=== PATIENT | female | born 1965 | race Caucasian/White ===

== ENCOUNTER 2018-02-02 17:32 | Emergency (ER) | payer OTHER ==
--- NOTE | 2018-02-02 18:37 | ER Document Report ---
ED Medical Screen (RME) - General Chief Complaint: Abdominal Pain Stated Complaint: ABDOMINAL PAIN Mode of Arrival: Ambulatory Information source: Patient Notes: Patient presents to emergency department with complaints of abdominal pain. Reports she has had flulike symptoms fever nausea. She went to the urgent care and they noted that she had right lower quadrant abdominal pain so they sent her here for possible appendicitis. She reports she has had a decrease in appetite. Denies vomiting. Reports she is noted blood in the water after she has a bowel movement and when she wipes. She reports history of hemorrhoids. She reports her flu test was negative at the urgent care. Denies pain with void denies urinary frequency. Reports RLQ ttp. TRAVEL OUTSIDE OF THE [place] IN LAST 30 DAYS: No - Related Data Allergies/Adverse Reactions: Penicillins Allergy (Verified 02/02/18 17:32) Past Medical History Pulmonary Medical History: Reports: Hx COPD Renal/ Medical History: Denies: Hx Peritoneal Dialysis Past Surgical History: Reports: Hx Thyroid Surgery Physical Exam - Vital signs Vitals: Temp Pulse BP Pulse Ox 97.9 F 56 L 150/86 H 100 02/02/18 17:40 02/02/18 17:40 02/02/18 17:40 02/02/18 17:40 Course - Vital Signs Vital signs: Temp Pulse Resp BP Pulse Ox 97.9 F 56 L 150/86 H 100 02/02/18 17:40 02/02/18 17:40 02/02/18 17:40 02/02/18 17:40
[2018-02-02 19:07] LABS: APPEARANCE,URINE CLEAR; BILIRUBIN,URINE NEGATIVE (NEGATIVE); COLOR,URINE YELLOW; GLUCOSE, URINE NEGATIVE (NEGATIVE); KETONES,URINE NEGATIVE (NEGATIVE); LEUKOCYTE ESTERASE,URINE LARGE (NEGATIVE); NITRITE,URINE NEGATIVE (NEGATIVE); PROTEIN,URINE NEGATIVE (NEGATIVE); URINE SPECIFIC GRAVITY 1.011; UROBILINOGEN,URINE NEGATIVE mg/dL (<2.0)
[2018-02-02 19:30] LABS: ABSOLUTE BASOPHILS # (AUTO) 0.1 10^3/uL (0.0-0.2); ABSOLUTE EOSINOPHILS # (AUTO) 0.1 10^3/uL (0.0-0.6); ABSOLUTE LYMPHOCYTES (AUTO) 1.5 10^3/uL (0.5-4.7); ABSOLUTE MONOCYTES (AUTO) 0.4 10^3/uL (0.1-1.4); ABSOLUTE NEUT (AUTO) 4.4 10^3/uL (1.7-8.2); EOSINOPHILS % (AUTO) 1.1 % (0-6); HEMATOCRIT 43.8 % (36.0-47.0); HEMOGLOBIN 15.1 g/dL (12.0-15.5); LYMPHOCYTES % (AUTO) 23.7 % (13-45); MEAN CORPUSCULAR HEMOGLOBIN 31.3 pg (27.0-33.4); MEAN CORPUSCULAR HGB CONC 34.3 g/dL (32.0-36.0); MEAN CORPUSCULAR VOLUME 91 fl (80-97); MONOCYTES % (AUTO) 5.7 % (3-13); PLATELET COUNT 278 10^3/uL (150-450); RED CELL DISTRIBUTION WIDTH 12.9 % (11.5-14.0); SEGMENTED NEUTROPHILS % (AUTO) 68.5 % (42-78); TOTAL CELLS COUNTED % (AUTO) 100 %; WHITE BLOOD COUNT 6.4 10^3/uL (4.0-10.5)
[2018-02-02 19:50] LABS: ALANINE AMINOTRANSFERASE 48 U/L (9-52); ALBUMIN 4.9 g/dL (3.5-5.0); ALKALINE PHOSPHATASE 66 U/L (38-126); ANION GAP 15 (5-19); ASPARTATE AMINO TRANSFERASE 31 U/L (14-36); BILIRUBIN,DIRECT 0.3 mg/dL (0.0-0.4); BILIRUBIN,TOTAL 0.5 mg/dL (0.2-1.3); BLOOD UREA NITROGEN 7 mg/dL (7-20); CALCIUM 10.5 mg/dL (8.4-10.2); CARBON DIOXIDE 29 mmol/L (22-30); CHLORIDE 102 mmol/L (98-107); GLUCOSE 99 mg/dL (75-110); POTASSIUM 3.8 mmol/L (3.6-5.0); SODIUM 145.7 mmol/L (137-145); TOTAL PROTEIN 8.1 g/dL (6.3-8.2)
[2018-02-02] MEDS ORDERED: NORMAL SALINE 1000 ML 1,000 ML IV ONE (22:14)
[2018-02-02] MEDS ORDERED: ONDANSETRON HCL INJ/PF 4 MG/2 ML SDV IV ONE (22:14)
--- NOTE | 2018-02-02 23:12 | ER Document Report ---
ED General - General Chief Complaint: Abdominal Pain Stated Complaint: ABDOMINAL PAIN Time Seen by Provider: 02/02/18 22:00 Mode of Arrival: Ambulatory Notes: Patient is a 52-year-old female presents with complaint of abdominal pain. Abdominal pain is over the right lower quadrant. She states she has had some nausea. She has had 1 or 2 episodes diarrhea. No dysuria. No foul-smelling urine. She has had intermittent fevers at home. She says pain is been there for approximately 4 days. She went to urgent care today and was tested for flu and was negative. She was then sent here for workup for appendicitis. She has no other complaints this time. Only previous abdominal surgery is . TRAVEL OUTSIDE OF THE [place] IN LAST 30 DAYS: No - Related Data Allergies/Adverse Reactions: Penicillins Allergy (Verified 02/02/18 17:32) Past Medical History - General Information source: Patient - Social History Smoking Status: Former Smoker Frequency of alcohol use: None Drug Abuse: None Family History: Reviewed & Not Pertinent Patient has suicidal ideation: No Patient has homicidal ideation: No Pulmonary Medical History: Reports: Hx COPD Renal/ Medical History: Denies: Hx Peritoneal Dialysis Past Surgical History: Reports: Hx Thyroid Surgery Review of Systems - Review of Systems Notes: My Normal Review Basic REVIEW OF SYSTEMS: CONSTITUTIONAL : Fevers. EENT: Denies eye, ear, throat, or mouth pain or symptoms. Denies nasal or sinus congestion. CARDIOVASCULAR: Denies chest pain. RESPIRATORY: Denies cough, cold, or chest congestion. Denies shortness of breath, difficulty breathing, or wheezing. GASTROINTESTINAL: Right lower quadrant abdominal pain. Nausea. GENITOURINARY: Denies difficulty urinating, painful urination, burning, frequency, or blood in urine. MUSCULOSKELETAL: Denies neck or back pain or joint pain or swelling. SKIN: Denies rash or skin lesions. Transport NEUROLOGICAL: Denies altered mental status or loss of consciousness. Denies headache. No focal weakness. ALL OTHER SYSTEMS REVIEWED AND NEGATIVE. Physical Exam - Vital signs Vitals: Temp Pulse BP Pulse Ox 97.9 F 56 L 150/86 H 100 02/02/18 17:40 02/02/18 17:40 02/02/18 17:40 02/02/18 17:40 - Notes Notes: General Appearance: Well nourished, alert, cooperative, no acute distress, no obvious discomfort. Well-appearing. Vitals: reviewed, See vital signs table. Head: no swelling or tenderness to the head Eyes: PERRL, EOMI, Conjuctiva clear Mouth: No decreasd moisture Throat: No tonsillar inflammation, No airway obstruction, No lymphadenopathy Lungs: No wheezing, No rales, No rhonci, No accessory muscle use, good air exchange bilaterally. Heart: Normal rate, Regular rythm, No murmur, no rub Abdomen: Normal BS, soft, No rigidity, localized pain of the right lower quadrant palpation is moderate. Patient does have some pain to left upper quadrant that is mild tenderness. Remainder of abdomen is nontender. No rigidity. No peritoneal signs. Extremities: strength 5/5 in all extremities, good pulses in all extremities, no swelling or tenderness in the extremities, no edema. Skin: warm, dry, appropriate color, no rash Neuro: speech clear, oriented x 3, normal affect, responds appropriately to questions. Course - Vital Signs Vital signs: Temp Pulse Resp BP Pulse Ox 98.1 F 56 L 20 162/85 H 98 02/02/18 21:43 02/02/18 21:43 02/02/18 21:43 02/02/18 21:43 02/02/18 21:43 - Laboratory Result Diagrams: 02/02/18 19:07 02/02/18 19:07 Laboratory results interpreted by me: 02/02/18 02/02/18 18:40 19:07 Sodium 145.7 H Calcium 10.5 H Urine Blood SMALL H Ur Leukocyte Esterase LARGE H Discharge - Discharge Clinical Impression: UTI (urinary tract infection) Qualifiers: Urinary tract infection type: site unspecified Hematuria presence: without hematuria Qualified Code(s): N39.0 - Urinary tract infection, site not specified Abdominal pain Qualifiers: Abdominal location: unspecified location Qualified Code(s): R10.9 - Unspecified abdominal pain Condition: Good Disposition: HOME, SELF-CARE Additional Instructions: Your CT scan did not show evidence of appendicitis. Your lab work shows evidence of urinary tract infection. I will place on an antibiotic called Bactrim. Please have a low threshold to return to ER immediately if you have worsening pain, vomiting, recurrent fevers, or she feel that you are worsening any way. Please follow-up with your doctor in 2-3 days for reevaluation. Prescriptions: Sulfamethoxazole/Trimethoprim [Bactrim Ds Tablet] 1 each PO BID #14 tablet Forms: Return to Work
--- NOTE | 2018-02-02 23:46 | RADIOLOGY REPORT (SQ) ---
EXAM DESCRIPTION: CT ABD/PELVIS WITH IV ONLY CLINICAL HISTORY: 52 years Female, abdominal pain COMPARISON: None. TECHNIQUE: No contrast. Coronal and sagittal reformat. This exam was performed according to our departmental dose-optimization program, which includes automated exposure control, adjustment of the mA and/or kV according to patient size and/or use of iterative reconstruction technique. FINDINGS: No acute findings. No free fluid. Normal appendix. IUD appears adequate. Inferior thorax, liver, gallbladder, pancreas, spleen, adrenals, renal system, gastrointestinal tract, pelvic organs, lymphatics, vasculature, and musculoskeleton appear otherwise unremarkable. IMPRESSION: Normal contrast CT of the abdomen and pelvis. IUD.
[2018-02-03] MEDS ORDERED: SULFAMETHOXAZOLE/TRIMETHOPRIM 800-160 MG TABLET PO ONE (00:16)
[2018-02-03] MEDS ORDERED: ONDANSETRON ODT 4 MG TAB (6 TAB/ER DISP) PO PRN (00:21)
[2018-02-03 00:38] VITALS: BP 149/78
== END 2018-02-03 00:38 | disposition home or self-care (01) ==
LOC: ER 17:32
DX: N39.0 Urinary tract infection, site not specified (principal); R50.9 Fever, unspecified; R10.31 Right lower quadrant pain; R10.12 Left upper quadrant pain; R11.0 Nausea; J44.9 Chronic obstructive pulmonary disease, unspecified; Z88.0 Allergy status to penicillin; Z87.891 Personal history of nicotine dependence
CPT/HCPCS: 99284; 96361; 96374; 36415; 85025; 80053; 81001; 74177; J2405; J7030

== ENCOUNTER 2019-08-31 14:26 | Emergency (ER) | payer OTHER ==
[2019-08-31] MEDS ORDERED: ASPIRIN 81 MG TABLET, CHEWABLE PO ONE (14:39)
--- NOTE | 2019-08-31 14:39 | ER Document Report ---
ED Medical Screen (RME) - General Chief Complaint: Chest Pain Stated Complaint: COUGH,FEVER Time Seen by Provider: 08/31/19 14:34 Mode of Arrival: Ambulatory Information source: Patient Notes: 54-year-old female female presented to ED for complaint of chest pain since this morning. She states she woke up in a puddle of sweat and she had an old thermometer and she checked her temperature was 102.3. She states she is not taking any medication she has not gotten up she did not go to work she has not done anything for the symptoms since then and her temperature is afebrile at this time. Her vital signs are stable at this time. She states she does still have some chest pain. She states she did feel a cardiac stress test about 4 years ago but she does not know what they ended up saying was wrong with her at that time. She states she is chilled all the time since morning. She states she has not had a flu shot. She states she does not take medications for any chronic illnesses she does not have any past medical history she does not drink or use cigarettes or any drugs. She does vape. The only medical history she has is when she failed the cardiac stress test. I have greeted and performed a rapid initial assessment of this patient. A comprehensive ED assessment and evaluation of the patient, analysis of test results and completion of medical decision making process will be conducted by an additional ED providers. TRAVEL OUTSIDE OF THE [place] IN LAST 30 DAYS: No - Related Data Allergies/Adverse Reactions: Penicillins Allergy (Verified 08/31/19 14:32) Past Medical History Pulmonary Medical History: Reports: Hx COPD Renal/ Medical History: Denies: Hx Peritoneal Dialysis Past Surgical History: Reports: Hx Thyroid Surgery
[2019-08-31 15:27] LABS: APPEARANCE,URINE CLEAR; BILIRUBIN,URINE NEGATIVE (NEGATIVE); COLOR,URINE STRAW; GLUCOSE, URINE NEGATIVE (NEGATIVE); KETONES,URINE NEGATIVE (NEGATIVE); PROTEIN,URINE NEGATIVE (NEGATIVE); URINE SPECIFIC GRAVITY 1.004; UROBILINOGEN,URINE NEGATIVE mg/dL (<2.0)
[2019-08-31 15:37] LABS: A TYPE INFLUENZA AG NEGATIVE (NEGATIVE); B INFLUENZA AG NEGATIVE (NEGATIVE)
--- NOTE | 2019-08-31 15:46 | RADIOLOGY REPORT (SQ) ---
EXAM DESCRIPTION: CHEST 2 VIEWS COMPLETED DATE/TIME: 08/31/2019 3:28 pm REASON FOR STUDY: cehst pain COMPARISON: None. EXAM PARAMETERS: NUMBER OF VIEWS: two views TECHNIQUE: Digital Frontal and Lateral radiographic views of the chest acquired. RADIATION DOSE: NA LIMITATIONS: none FINDINGS: LUNGS AND PLEURA: No opacities, masses or pneumothorax. No pleural effusion. MEDIASTINUM AND HILAR STRUCTURES: No masses or contour abnormalities. HEART AND VASCULAR STRUCTURES: Heart normal size. No evidence for failure. BONES: Disc degenerative disease of the thoracic spine. HARDWARE: None in the chest. OTHER: No other significant finding. IMPRESSION: No acute abnormality of the lungs. No focal airspace opacity. TECHNICAL DOCUMENTATION: JOB ID: [id number]- All Rights Reserved Reading location - IP/workstation name: [email or web address]
[2019-08-31 15:57] LABS: ABSOLUTE LYMPHOCYTES (AUTO) 0.6 10^3/uL (0.5-4.7); ABSOLUTE MONOCYTES (AUTO) 0.2 10^3/uL (0.1-1.4); ABSOLUTE NEUT (AUTO) 5.5 10^3/uL (1.7-8.2); BASOPHILS % (AUTO) 0.7 % (0-2); EOSINOPHILS % (AUTO) 0.8 % (0-6); HEMATOCRIT 39.2 % (36.0-47.0); HEMOGLOBIN 13.8 g/dL (12.0-15.5); LYMPHOCYTES % (AUTO) 9.6 % (13-45); MEAN CORPUSCULAR HEMOGLOBIN 32.3 pg (27.0-33.4); MEAN CORPUSCULAR HGB CONC 35.4 g/dL (32.0-36.0); MEAN CORPUSCULAR VOLUME 92 fl (80-97); MONOCYTES % (AUTO) 3.8 % (3-13); PLATELET COUNT 238 10^3/uL (150-450); RED BLOOD COUNT 4.28 10^6/uL (3.72-5.28); RED CELL DISTRIBUTION WIDTH 12.5 % (11.5-14.0); SEGMENTED NEUTROPHILS % (AUTO) 85.1 % (42-78); TOTAL CELLS COUNTED % (AUTO) 100 %; WHITE BLOOD COUNT 6.4 10^3/uL (4.0-10.5)
[2019-08-31 16:10] LABS: ALBUMIN 4.3 g/dL (3.5-5.0); ALKALINE PHOSPHATASE 68 U/L (38-126); ANION GAP 8 (5-19); ASPARTATE AMINO TRANSFERASE 19 U/L (14-36); BILIRUBIN,DIRECT 0.1 mg/dL (0.0-0.4); BILIRUBIN,TOTAL 0.7 mg/dL (0.2-1.3); BLOOD UREA NITROGEN 7 mg/dL (7-20); CALCIUM 9.9 mg/dL (8.4-10.2); CARBON DIOXIDE 28 mmol/L (22-30); CHLORIDE 107 mmol/L (98-107); GLUCOSE 93 mg/dL (75-110); POTASSIUM 3.8 mmol/L (3.6-5.0); TOTAL PROTEIN 7.4 g/dL (6.3-8.2)
[2019-08-31] MEDS ORDERED: ACETAMINOPHEN 325 MG TABLET PO ONE (16:10)
--- NOTE | 2019-08-31 16:27 | ER Document Report ---
ED General - General Chief Complaint: Chest Pain Stated Complaint: COUGH,FEVER Time Seen by Provider: 08/31/19 14:34 Primary Care Provider: DEBBIE SNOW [Primary Care Provider] - Follow up as needed Mode of Arrival: Ambulatory Notes: 54-year-old anxious female presents to the emergency department with chief complaint of flulike symptoms that started about a week ago with chest pain this morning. Patient states that she had a normal thermometer and had a T-max of 102.3. Patient is otherwise perseverating about her work but does not have any specific complaints other than being "hot and cold hot and cold" and waking up in a pool of sweat. Patient denies headache, neck stiffness, sore throat, shortness of breath, nausea/vomiting/diarrhea, denies urinary symptoms. Of note she states that she has a ParaGard that is 2 years overdue from being removed. Patient has major life stressors right now with work and finances. TRAVEL OUTSIDE OF THE [place] IN LAST 30 DAYS: No - Related Data Allergies/Adverse Reactions: Penicillins Allergy (Verified 08/31/19 14:32) Past Medical History - General Information source: Patient - Social History Smoking Status: Never Smoker Chew tobacco use (# tins/day): No Frequency of alcohol use: None Drug Abuse: None Family History: Reviewed & Not Pertinent Patient has suicidal ideation: No Patient has homicidal ideation: No Pulmonary Medical History: Reports: Hx COPD Renal/ Medical History: Denies: Hx Peritoneal Dialysis Past Surgical History: Reports: Hx Thyroid Surgery Review of Systems - Review of Systems Constitutional: See HPI EENT: See HPI Cardiovascular: See HPI Respiratory: See HPI Gastrointestinal: See HPI Genitourinary: No symptoms reported Female Genitourinary: No symptoms reported Musculoskeletal: No symptoms reported Skin: No symptoms reported Hematologic/Lymphatic: No symptoms reported Neurological/Psychological: No symptoms reported Physical Exam - Vital signs Vitals: Temp Pulse Resp BP Pulse Ox 97.5 F 81 18 149/68 H 100 08/31/19 14:37 08/31/19 14:37 08/31/19 14:37 08/31/19 14:37 08/31/19 14:37 - Notes Notes: PHYSICAL EXAMINATION: Reviewed vital signs and charting by RN GENERAL: Alert, interacts well. No acute distress. HEAD: Normocephalic, atraumatic. EYES: Pupils equal and round. Extraocular movements intact. ENT: Oral mucosa moist, tongue midline. NECK: Full range of motion. Trachea midline. LUNGS: Clear to auscultation bilaterally, no wheezes, rales, or rhonchi. No respiratory distress. HEART: Regular rate and rhythm. No murmur ABDOMEN: soft, non-tender. No distention. Bowel sounds present EXTREMITIES: Moves all 4 extremities spontaneously. No edema, No cyanosis. PSYCH: Normal affect, depressed mood, anxious SKIN: Warm, dry, normal turgor. No rashes or lesions noted. Course - Re-evaluation Re-evalutation: 08/31/19 16:23 Generally well-appearing and nontoxic. Rapid flu negative. Chest x-ray normal. EKG showed a sinus rhythm with a rate of 73, a right bundle branch block, adams l axis. Awaiting troponin. 08/31/19 16:27 08/31/19 17:15 Troponin negative. Lab work all within normal limits. Patient most likely suffering from an upper respiratory viral infection. Patient is highly stressed so I am going to place a shelter case manager consult to possibly give her some assistance with services. She is stable for discharge. - Vital Signs Vital signs: Temp Pulse Resp BP Pulse Ox 97.5 F 81 10 L 157/87 H 98 08/31/19 14:37 08/31/19 14:37 08/31/19 16:01 08/31/19 16:01 08/31/19 16:01 - Laboratory Result Diagrams: 08/31/19 15:40 08/31/19 15:40 Laboratory results interpreted by me: 08/31/19 08/31/19 15:08 15:40 Lymph % (Auto) 9.6 L Seg Neutrophils % 85.1 H Urine Blood MODERATE H Leukocyte Esterase Rfl MODERATE H Discharge - Discharge Clinical Impression: Chest pain Qualifiers: Chest pain type: unspecified Qualified Code(s): R07.9 - Chest pain, unspecified Upper respiratory infection Qualifiers: URI type: unspecified URI Qualified Code(s): J06.9 - Acute upper respiratory infection, unspecified Condition: Good Disposition: HOME, SELF-CARE Instructions: Upper Respiratory Illness ([facility]) Additional Instructions: You have been seen and treated in the emergency department for an upper respiratory infection. These are typically caused by viruses and do not respond to antibiotics. They are typically highly contagious and because you are in the acute phase you should not return to work for the next 24-48 hours. Please also continue to take [id number] Tylenol and Motrin for your generalized body aches, fever. Please stay well-hydrated and get plenty of rest. Please follow- up with your primary care provider in the next 24 to 48 hours. Please return to the emergency room should you have any other concerning symptoms. Forms: Return to Work Referrals: [facility] [Primary Care Provider] - Follow up as needed
[2019-08-31 17:05] VITALS: BP 127/84
--- NOTE | 2019-08-31 17:17 | EKG REPORT ---
SEVERITY:- ABNORMAL ECG - SINUS RHYTHM PROBABLE LEFT ATRIAL ABNORMALITY RIGHT BUNDLE BRANCH BLOCK : Confirmed by: Fredy Morgan MD 31-Aug-2019 17:16:46
== END 2019-08-31 17:40 | disposition home or self-care (01) ==
LOC: ER 14:26
DX: J06.9 Acute upper respiratory infection, unspecified (principal); R07.9 Chest pain, unspecified; R50.9 Fever, unspecified; J44.9 Chronic obstructive pulmonary disease, unspecified; Z88.0 Allergy status to penicillin
CPT/HCPCS: 36415; 71046; 80053; 81001; 83690; 84484; 85025; 87086; 87804; 93005; 93010; 99284

== ENCOUNTER 2019-12-13 18:27 | Observation (INO) | payer OTHER ==
[2019-12-13] MEDS ORDERED: ASPIRIN 81 MG TABLET, CHEWABLE PO ONE (18:47)
--- NOTE | 2019-12-13 18:49 | ER Document Report ---
ED Medical Screen (RME) - General Chief Complaint: Chest Pain Stated Complaint: CHEST PAIN Time Seen by Provider: 12/13/19 18:42 Primary Care Provider: DEBBIE SNOW [Primary Care Provider] - Follow up as needed Notes: HPI: 54-year-old female presenting to the emergency department complaining of sharp squeezing chest pain in the lower midsternal region with radiation under the right breast that began around 7 AM has been constant throughout the day no nausea or vomiting, does complain of some shortness of breath. Pain does not radiate into the back neck arms or shoulders. Patient states she did recently see her primary care provider for a first visit 3 days ago. Patient states that they changed some of her medications. Patient has never seen a otolaryngology rep. Patient denies abdominal pain. I have greeted and performed a rapid initial assessment of this patient. A comprehensive ED assessment and evaluation of the patient, analysis of test results and completion of the medical decision making process will be conducted by additional ED providers PHYSICAL EXAMINATION: GENERAL: Well-appearing, well-nourished and in moderate acute distress. HEAD: Atraumatic, normocephalic. EYES: sclera anicteric, conjunctiva are normal. ENT: Moist mucous membranes. NECK: Normal range of motion LUNGS: Normal work of breathing, clear to auscultation HEART: 2+ radial pulses bilaterally, regular rate and rhythm ABD: limited by positioning for exam in triage., No significant tenderness elicited in triage on palpation EXTREMITIES: no pitting or edema. No cyanosis. NEUROLOGICAL: No focal neurological deficits. Moves all extremities spontaneously and on command. PSYCH: Anxious mood, normal affect. SKIN: Warm, Dry, normal turgor, no rashes or lesions noted. TRAVEL OUTSIDE OF THE [place] IN LAST 30 DAYS: No - Related Data Allergies/Adverse Reactions: Penicillins Allergy (Verified 12/13/19 18:41) Past Medical History - Social History Chew tobacco use (# tins/day): No Frequency of alcohol use: None Drug Abuse: None Pulmonary Medical History: Reports: Hx COPD Renal/ Medical History: Denies: Hx Peritoneal Dialysis Past Surgical History: Reports: Hx Thyroid Surgery Physical Exam - Vital signs Vitals: Temp Pulse Resp BP Pulse Ox 98 F 58 L 16 150/88 H 98 12/13/19 18:42 12/13/19 18:42 12/13/19 18:42 12/13/19 18:42 12/13/19 18:42 Course - Vital Signs Vital signs: Temp Pulse Resp BP Pulse Ox 98 F 58 L 16 150/88 H 98 12/13/19 18:42 12/13/19 18:42 12/13/19 18:42 12/13/19 18:42 12/13/19 18:42 Doctor's Discharge - Discharge Referrals: [facility] [Primary Care [facility]] - Follow up as needed
[2019-12-13 19:09] LABS: ABSOLUTE EOSINOPHILS # (AUTO) 0.1 10^3/uL (0.0-0.6); ABSOLUTE LYMPHOCYTES (AUTO) 1.2 10^3/uL (0.5-4.7); ABSOLUTE MONOCYTES (AUTO) 0.4 10^3/uL (0.1-1.4); ABSOLUTE NEUT (AUTO) 4.6 10^3/uL (1.7-8.2); BASOPHILS % (AUTO) 0.6 % (0-2); EOSINOPHILS % (AUTO) 1.5 % (0-6); HEMATOCRIT 40.1 % (36.0-47.0); HEMOGLOBIN 13.7 g/dL (12.0-15.5); LYMPHOCYTES % (AUTO) 18.4 % (13-45); MEAN CORPUSCULAR HGB CONC 34.2 g/dL (32.0-36.0); MEAN CORPUSCULAR VOLUME 94 fl (80-97); MONOCYTES % (AUTO) 6.9 % (3-13); PLATELET COUNT 267 10^3/uL (150-450); RED BLOOD COUNT 4.28 10^6/uL (3.72-5.28); RED CELL DISTRIBUTION WIDTH 12.9 % (11.5-14.0); SEGMENTED NEUTROPHILS % (AUTO) 72.6 % (42-78); TOTAL CELLS COUNTED % (AUTO) 100 %; WHITE BLOOD COUNT 6.3 10^3/uL (4.0-10.5)
--- NOTE | 2019-12-13 19:14 | RADIOLOGY REPORT (SQ) ---
EXAM DESCRIPTION: CHEST 2 VIEWS COMPLETED DATE/TIME: 12/13/2019 7:02 pm REASON FOR STUDY: chest pain COMPARISON: 08/31/2019 TECHNIQUE: Frontal and lateral radiographic views of the chest acquired. NUMBER OF VIEWS: Two view. LIMITATIONS: None. FINDINGS: LUNGS AND PLEURA: No pneumothorax. No consolidation or pleural effusion. MEDIASTINUM AND HILAR STRUCTURES: Stable. HEART AND VASCULAR STRUCTURES: Stable. BONES: No acute findings. HARDWARE: None in the chest. OTHER: No other significant finding. IMPRESSION: NO ACUTE FINDINGS. TECHNICAL DOCUMENTATION: JOB ID: [id number] [employer]- All Rights Reserved Reading location - IP/workstation name: [email or web address]
[2019-12-13 19:32] LABS: ALBUMIN 4.4 g/dL (3.5-5.0); ALKALINE PHOSPHATASE 52 U/L (38-126); ANION GAP 5 (5-19); ASPARTATE AMINO TRANSFERASE 22 U/L (14-36); BILIRUBIN,TOTAL 0.7 mg/dL (0.2-1.3); BLOOD UREA NITROGEN 12 mg/dL (7-20); CARBON DIOXIDE 32 mmol/L (22-30); CHLORIDE 103 mmol/L (98-107); POTASSIUM 3.9 mmol/L (3.6-5.0); TOTAL PROTEIN 7.4 g/dL (6.3-8.2)
[2019-12-13 19:35] LABS: GLUCOSE 61 mg/dL (75-110)
--- NOTE | 2019-12-13 19:56 | EKG REPORT ---
SEVERITY:- ABNORMAL ECG - SINUS RHYTHM RIGHT BUNDLE BRANCH BLOCK : Confirmed by: Fredy Morgan MD 13-Dec-2019 19:55:40
[2019-12-13] MEDS ORDERED: ONDANSETRON HCL INJ/PF 4 MG/2 ML SDV IV ONE (20:14)
[2019-12-13] MEDS ORDERED: FENTANYL CITRATE INJ/PF 100 MCG/2 ML AMPUL IV ONE ×2 (20:15→22:21)
--- NOTE | 2019-12-13 20:37 | ER Document Report ---
ED General - General Chief Complaint: Chest Pain Stated Complaint: CHEST PAIN Time Seen by Provider: 12/13/19 18:42 Primary Care Provider: DEBBIE SNOW [NO LOCAL MD] - Follow up as needed TRAVEL OUTSIDE OF THE [place] IN LAST 30 DAYS: No - HPI Notes: This is a 54-year-old female with no known prior history of cardiac disease who awakened around 7 AM 3 days ago with discomfort in the right subcostal area radiating to the sternum and up underneath the right breast described as sharp and "taking my breath away" worse with movement or taking a deep breath. Patient denies nausea vomiting. She says she has had some intermittent subjective fever without chills. She denies any known history of hepatobiliary disease. Patient was seen by primary care doctor and told that she was having "anxiety attacks" and was given an antidepressant and an antianxiety medication. She was also told she might need to "see a acid pump operator and get a GI series". Symptoms worse today and so she has presented to the emergency department. She she says the pain is very much intermittent not particularly associated with eating. Presently describes it as severe rating it 8/10. Patient says she no longer smokes but vapes regularly. Denies use of alcohol. No history of diabetes or hypertension. No history of hyperlipidemia. Family history is negative for cardiac disease. Denies any known injury. Denies personal or family history of thromboembolic disease. - Related Data Allergies/Adverse Reactions: Penicillins Allergy (Verified 12/13/19 18:41) Past Medical History - General Information source: Patient - Social History Smoking Status: Current Every Day Smoker Chew tobacco use (# tins/day): No Frequency of alcohol use: None Drug Abuse: None Family History: Reviewed & Not Pertinent Patient has suicidal ideation: No Patient has homicidal ideation: No Pulmonary Medical History: Reports: Hx COPD Renal/ Medical History: Denies: Hx Peritoneal Dialysis Past Surgical History: Reports: Hx Thyroid Surgery Review of Systems - Review of Systems Notes: Constitutional: As per HPI. HENT: Negative for sore throat. Eyes: Negative for visual changes. Cardiovascular: As per HPI. Respiratory: As per HPI. Gastrointestinal: As per HPI. Genitourinary: Negative for dysuria. Musculoskeletal: Negative for back pain. Skin: Negative for rash. Neurological: Negative for headaches, weakness or numbness. 10 point ROS negative except as marked above and in HPI. Physical Exam - Vital signs Vitals: Temp Pulse BP Pulse Ox 98.0 F 58 L 150/88 H 98 12/13/19 18:39 12/13/19 18:39 12/13/19 18:39 12/13/19 18:39 - Notes Notes: GENERAL: Female patient of approximately stated age appearing in acute distress holding her right upper quadrant abdominal and lower right chest area complaining of severe pain. SKIN: Good turgor no rashes. HEAD: Normocephalic atraumatic. EYES: PERRLA. EOMI. Conjunctivae and sclerae clear. EARS: CANALS AND TMS CLEAR. NOSE: CLEAR. MOUTH: Moist mucosa. Good dentition. No stridor or edema. No drooling. NECK: Supple. No masses or thyromegaly. No adenopathy. Carotids 2+ without bruits. No JVD. BACK: Symmetrical without tenderness. CHEST: Respirations unlabored. Breath sounds clear and symmetrical. HEART: Regular rhythm. No murmur gallop or rub. ABDOMEN: Moderate tenderness right upper quadrant. Soft without masses, organomegaly or rebound. Bowel sounds normally active. No bruits. GENITALIA: Deferred. EXTREMITIES: No edema. No calf tenderness. Cap refill less than 1.5 seconds. Dorsalis pedis and posterior tibial pulses 3+ and symmetrical. NEUROLOGICAL: GCS 15. Alert and oriented x3. Fluent speech. Cranial nerves II through XII intact. Sensorimotor and cerebellar normal. Normal tone. PSYCHIATRIC: Very anxious and tearful. Course - Re-evaluation Re-evalutation: 12/13/19 20:37 EKG shows a right bundle branch block but this is old and present on a previous tracing obtained here in August 2019. Her initial troponin is normal. Chemistry profile is unremarkable. White count is not elevated. Hemoglobin is normal. Urinalysis is pending. Lipase level is normal. Oxygenation is normal and the chest x-ray shows no free air under the diaphragm no pneumothorax and no focal infiltrate or effusion. 12/13/19 20:39 Differential diagnosis at this time would include cardiac ischemia, biliary colic, renal stone, preeruptive zoster and musculoskeletal pain. We will give the patient some IV analgesia and await results of a gallbladder ultrasound at this point. 12/14/19 03:09 Gallbladder ultrasound was negative. We note that this lady has 2 normal troponins here and no acute changes appreciated on EKG. She has small amount of blood noted in her urine. We got a noncontrast CT abdomen pelvis and she has no evidence of obstructing stone or aneurysm and no evidence of perforation. Which she does have is very large amount of retained fecal material in the colon. Her TSH is elevated in the low 20s and she is not taking thyroid replacement at this time. I think her symptoms are probably due to her distended colon. We have given her 1 round of enemas with no significant results. She is continuing to complain of discomfort and a epigastric area. Case has been discussed with the hospitalist, Dr. Lassiter, and he will admit for further management and evaluation. - Vital Signs Vital signs: Temp Pulse Resp BP Pulse Ox 97.7 F 54 L 18 130/78 H 100 12/14/19 00:25 12/13/19 19:35 12/13/19 21:29 12/13/19 19:35 12/13/19 21:29 - Laboratory Result Diagrams: 12/13/19 18:50 12/13/19 18:50 Laboratory results interpreted by me: 12/13/19 12/13/19 12/13/19 18:50 18:50 21:17 Carbon Dioxide 32 H Glucose 61 L TSH 19.60 H Urine Blood MODERATE H - Diagnostic Test Radiology reviewed: Reports reviewed - No active disease per radiologist - EKG Interpretation by Me Additional EKG results interpreted by me: 12/13/19 20:39 Twelve-lead EKG is reviewed contemporaneously by me 1835 hrs. This shows a pre- existing right bundle branch block and a n sinus bradycardia with a rate of 57. She has no acute ST changes. Discharge - Discharge Clinical Impression: Chest pain Qualifiers: Chest pain type: unspecified Qualified Code(s): R07.9 - Chest pain, unspecified Hypothyroidism Qualifiers: Hypothyroidism type: postablative Qualified Code(s): E89.0 - Postprocedural hypothyroidism Constipation Qualifiers: Constipation type: slow transit constipation Qualified Code(s): K59.01 - Slow transit constipation Condition: Good Disposition: ADMITTED INPATIENT Admitting Provider: Maikol (Hospitalist) Unit Admitted: Telemetry [facility]: [facility] [NO LOCAL MD] - Follow up as needed
[2019-12-13 21:34] LABS: APPEARANCE,URINE CLEAR; BILIRUBIN,URINE NEGATIVE (NEGATIVE); COLOR,URINE STRAW; GLUCOSE, URINE NEGATIVE (NEGATIVE); KETONES,URINE NEGATIVE (NEGATIVE); PROTEIN,URINE NEGATIVE (NEGATIVE); URINE SPECIFIC GRAVITY 1.009; UROBILINOGEN,URINE NEGATIVE mg/dL (<2.0)
--- NOTE | 2019-12-13 22:06 | RADIOLOGY REPORT (SQ) ---
Ultrasound right upper quadrant on 12/13/2019 at 9:18 PM CLINICAL INDICATION: Right upper quadrant pain COMPARISON: CT from 02/02/2018 FINDINGS: Multiple sonographic images were obtained throughout the right upper quadrant, both transverse and sagittal images are obtained. Visualized pancreas is unremarkable. Visualized liver is homogeneous without focal liver lesion or evidence of intrahepatic biliary ductal dilatation. There are no gallstones, gallbladder wall thickening or pericholecystic fluid. Visualized hepatic vasculature is patent and with a normal directional flow. Common duct measures 2 mm which is within normal limits mitigating against obstruction of the biliary tree. Right kidney shows no hydronephrosis. IMPRESSION: Unremarkable exam.
--- NOTE | 2019-12-13 23:05 | RADIOLOGY REPORT (SQ) ---
EXAM DESCRIPTION: CT ABDOMEN PELVIS WITHOUT IV CONTRAST COMPLETED DATE/TME: 12/13/2019 22:18 CLINICAL HISTORY: 54 years, Female, RUQ abd pain and hematuria COMPARISON: 02/03/2018 CT. Ultrasound today's date TECHNIQUE: 287 Images stored on PACS. All CT scanners at this facility use dose modulation, iterative reconstruction, and/or weight based dosing when appropriate to reduce radiation dose to as low as reasonably achievable (ALARA). [facility]: Dose Right [facility]: CareDose [facility]: Dose Right [facility]: Teradose 4D [facility]: [employer] LIMITATIONS: None. FINDINGS: The lung bases are unremarkable. Osseous structures are grossly intact. The visualized liver, spleen, adrenal glands, pancreas, kidneys are unremarkable. Negative for urinary tract calculus or hydronephrosis. The gallbladder is present. There is no evidence for bowel obstruction. Normal appendix. Abundant stool in the colon. No free air or free fluid. IUD in place. Urinary bladder is incompletely distended. IMPRESSION: Large amount of stool in the colon. Negative for urinary tract calculus or hydronephrosis TECHNICAL DOCUMENTATION: Quality ID # 436: Final reports with documentation of one or more dose reduction techniques (e.g., Automated exposure control, adjustment of the mA and/or kV according to patient size, use of iterative reconstruction technique) copyright 2011 [employer]- All Rights Reserved
[2019-12-14] MEDS ORDERED: LEVOTHYROXINE SODIUM 0.05 MG TABLET PO ONE (04:52)
[2019-12-14] MEDS ORDERED: PROMETHAZINE HCL INJ 25 MG/1 ML VIAL IV PRN (04:52)
[2019-12-14] MEDS ORDERED: MAGNESIUM HYDROXIDE SUSP 30 ML UDCUP PO PRN (04:52)
[2019-12-14] MEDS ORDERED: ACETAMINOPHEN 325 MG TABLET PO PRN (04:52)
--- NOTE | 2019-12-14 04:52 | PDOC H&P ---
History of Present Illness Admission Date/PCP: 12/14/19 03:26 SUNNY FORDE DO Patient complains of: epigastric pain History of Present Illness: SPENCER MORAN is a 54 year old female with diffuse complaints of abdominal pain mostly in the epigastrium and under the distal sternum. She has seen a new primary care provider and he has suggested that this could be a hiatal hernia or gastritis/esophagitis. He is currently scheduling an outpatient imaging study as a first step. In addition CT scan does show significant constipation although the patient reports moving her bowels regularly. She had radioactive iodine treatment for her hyperthyroidism and is now hypothyroid but she is not been taking her levothyroxine. Lastly she suffers from significant anxiety. The initial troponins are negative and I do not believe this has any bearing on her cardiac status. I believe her pain is related to constipation and likely esophagitis/gastritis. Work-up reveals a normal CBC. TSH is 19.6. Troponins are less than 0.012 and her sed rate is normal. She will be admitted to observation status. Monitor on telemetry. Continue laxative administration and proton pump inhibitors along with Carafate. Past Medical History Pulmonary Medical History: Reports: Chronic Obstructive Pulmonary Disease (COPD) Endocrine Medical History: Reports: Hyperthyroidism - Initially with radioactive iodine therapy leading to hypothyroidism, Hypothyroidism Psychiatric Medical History: Reports: General Anxiety Disorder Past Surgical History Past Surgical History: Reports: Section Social History Information Source: Patient Lives with: Spouse/Significant other Smoking Status: Former Smoker Electronic Cigarette use?: Yes - Patient reports no cigarettes but does vape Frequency of Alcohol Use: Rare Hx Recreational Drug Use: No Hx Prescription Drug Abuse: No - Advance Directive Resuscitation Status: Full Code Family History Family History: Reviewed & Not Pertinent, Other - Mother committed suicide Parental Family History Reviewed: Yes Children Family History Reviewed: Yes Sibling(s) Family History Reviewed.: Yes Medication/Allergy Home Medications: Buspirone HCl [Buspar 10 mg Tablet] 7.5 mg PO BID 12/14/19 Hydroxyzine Pamoate [Vistaril 25 mg Capsule] 25 mg PO Q8HP PRN 12/14/19 Levothyroxine Sodium [Synthroid 0.05 mg Tablet] 0.05 mg PO Q6AM 12/14/19 Zolpidem Tartrate [Ambien] 10 mg PO QHS 12/14/19 Allergies/Adverse Reactions: Penicillins Allergy (Verified 12/13/19 18:41) Review of Systems All systems: reviewed and no additional remarkable complaints except as stated Cardiovascular: PRESENT: chest pain Gastrointestinal: PRESENT: constipation Psychiatric: PRESENT: anxiety Physical Exam Vital Signs: Temp Pulse Resp BP Pulse Ox 97.7 F 54 L 18 130/78 H 100 12/14/19 00:25 12/13/19 19:35 12/13/19 21:29 12/13/19 19:35 12/13/19 21:29 Intake & Output 12/12/19 12/13/19 12/14/19 06:59 06:59 07:59 Weight 67.4 kg General appearance: PRESENT: mild distress - Mild to moderate distress, well- developed Head exam: PRESENT: atraumatic, normocephalic Eye exam: PRESENT: conjunctiva pink, EOMI. ABSENT: scleral icterus Ear exam: PRESENT: normal external ear exam. ABSENT: bleeding, drainage Mouth exam: PRESENT: moist, tongue midline Neck exam: ABSENT: carotid bruit, JVD, lymphadenopathy Respiratory exam: PRESENT: clear to auscultation goran, symmetrical, unlabored. ABSENT: accessory muscle use, prolonged expiratory phas, rales, rhonchi, tachypnea, wheezes Cardiovascular exam: PRESENT: RRR, +S1, +S2. ABSENT: diastolic murmur, systolic murmur GI/Abdominal exam: PRESENT: normal bowel sounds, soft. ABSENT: distended, guarding, tenderness Rectal exam: PRESENT: deferred Gentrourinary exam: ABSENT: indwelling catheter Extremities exam: ABSENT: joint swelling, pedal edema Musculoskeletal exam: PRESENT: ambulatory, full ROM, normal inspection. ABSENT: deformity Neurological exam: PRESENT: alert, awake, oriented to person, oriented to place, oriented to time, oriented to situation, CN II-XII grossly intact. ABSENT: motor sensory deficit Psychiatric exam: PRESENT: anxious. ABSENT: agitated, manic Focused psych exam: PRESENT: restlessness. ABSENT: delusional Skin exam: PRESENT: dry, normal color, warm. ABSENT: rash Results Laboratory Results: 12/13/19 18:50 12/13/19 18:50 12/13/19 12/13/19 12/13/19 18:50 18:50 18:50 WBC 6.3 RBC 4.28 Hgb 13.7 Hct 40.1 MCV 94 MCH 32.0 MCHC 34.2 RDW 12.9 Plt Count 267 Seg Neutrophils % 72.6 Sodium 140.1 Potassium 3.9 Chloride 103 Carbon Dioxide 32 H Anion Gap 5 BUN 12 Creatinine 0.75 Est GFR ( Amer) > 60 Glucose 61 L Calcium 10.0 Total Bilirubin 0.7 AST 22 Alkaline Phosphatase 52 Total Protein 7.4 Albumin 4.4 Lipase 216.4 TSH 19.60 H Urine Color Urine Appearance Urine pH Ur Specific Mallard Urine Protein Urine Glucose (UA) Urine Ketones Urine Blood Urine RBC (Auto) 12/13/19 21:17 WBC RBC Hgb Hct MCV MCH MCHC RDW Plt Count Seg Neutrophils % Sodium Potassium Chloride Carbon Dioxide Anion Gap BUN Creatinine Est GFR ( Amer) Glucose Calcium Total Bilirubin AST Alkaline Phosphatase Total Protein Albumin Lipase TSH Urine Color STRAW Urine Appearance CLEAR Urine pH 6.0 Ur Specific Mallard 1.009 Urine Protein NEGATIVE Urine Glucose (UA) NEGATIVE Urine Ketones NEGATIVE Urine Blood MODERATE H Urine RBC (Auto) 2 12/13/19 12/13/19 18:50 23:59 Troponin I < 0.012 < 0.012 Impressions: Chest X-Ray 12/13/19 18:42 IMPRESSION: NO ACUTE FINDINGS. Abdomen Ultrasound 12/13/19 20:12 IMPRESSION: Unremarkable exam. Abdomen/Pelvis CT 12/13/19 22:18 IMPRESSION: Large amount of stool in the colon. Negative for urinary tract calculus or hydronephrosis TECHNICAL DOCUMENTATION: Quality ID # 436: Final reports with documentation of one or more dose reduction techniques (e.g., Automated exposure control, adjustment of the mA and/or kV according to patient size, use of iterative reconstruction technique) copyright 2011 [employer]- All Rights Reserved Assessment and Plan - Diagnosis (1) Chest pain Qualifiers: Chest pain type: unspecified Qualified Code(s): R07.9 - Chest pain, unspecified Is this a current diagnosis for this admission?: Yes Plan: 12/14/2019 The first 2 troponins are negative. The EKG does show a right bundle branch block and it is unknown if this is new or not. Sublingual nitroglycerin was never given to see if the pain would resolve. She is on aspirin. Statin therapy would be the next adjunct. She will be monitored on telemetry and consider cardiology evaluation. (2) Epigastric abdominal pain Is this a current diagnosis for this admission?: Yes Plan: 12/14/2019 The pain in question, as noted above, is more likely GI related. She will be placed on proton pump inhibitors and Carafate. She should continue with Dr. Forde's plan of an upper GI study. If effective, I would continue the proton pump inhibitors as an outpatient. She does have significant anxiety and this certainly could be contributing to her discomfort. (3) Constipation Qualifiers: Constipation type: slow transit constipation Qualified Code(s): K59.01 - Slow transit constipation Is this a current diagnosis for this admission?: Yes Plan: 12/14/2019 Despite reports of having regular bowel movements the patient still has a significant load of feces in her colon. I will give oral Dulcolax and mag citrate which should be quite effective. If this is a chronic problem then she might consider changes in diet as well as compliance with her levothyroxine and possibly medication such as Linzess or Relistor. (4) Hypothyroidism Qualifiers: Hypothyroidism type: postablative Qualified Code(s): E89.0 - Postprocedural hypothyroidism Is this a current diagnosis for this admission?: Yes Plan: 12/14/2019 The patient has been restarted on levothyroxine 50 mcg by her new primary care provider Dr. Forde. She will need repeat blood work in 3 months. (5) Anxiety Is this a current diagnosis for this admission?: Yes Plan: 12/14/2019 Continue BuSpar. I have increased the dose slightly. Lorazepam is available as well. Ambien will also be available to help with sleep. - Time Time Spent with patient: 35 or more minutes Smoking Cessation Education: 3 to 10 minutes - She needs to stop vaping Medications reviewed and adjusted accordingly: Yes Anticipated discharge: Home Within: within 48 hours
[2019-12-14] MEDS ORDERED: MAGNESIUM CITRATE 296 ML BOTTLE PO ONE (04:59)
[2019-12-14] MEDS ORDERED: BISACODYL 5 MG TABEC PO ONE (04:59)
[2019-12-14] MEDS: ZOLPIDEM TARTRATE 5 MG TABLET PO PRN ×2 (05:55→22:27)
[2019-12-14] MEDS: PANTOPRAZOLE SODIUM 40 MG TABLET.DR PO SCH ×2 (05:55→16:41)
[2019-12-14] MEDS: NORMAL SALINE 1000 ML 1,000 ML IV PRN ×2 (05:56→14:29)
[2019-12-14] MEDS: HEPARIN SOD (PORCINE) 5,000 UNIT/ML 1 ML VIAL SUBCUT SCH ×3 (05:56→22:27)
[2019-12-14] MEDS: DICYCLOMINE HCL 20 MG TABLET PO PRN ×2 (05:57→14:01)
[2019-12-14] MEDS: SUCRALFATE 1 GM TABLET PO SCH ×4 (09:08→22:27)
[2019-12-14] MEDS: BUSPIRONE HCL 10 MG TABLET PO SCH ×2 (09:08→22:27)
--- NOTE | 2019-12-14 11:32 | Progress Note ---
Provider Note Provider Note: 54-year-old female who was admitted last night through the emergency room after midnight for abdominal pain and "chest pain". Patient is a poor historian but states that for the last 3 months she has been having chest pain off and on. She points however to the epigastric region and the sternum. Patient states th at on November 24 she went to the emergency room at [facility] and was seen in the ER but not admitted for "chest pain". She tells me that she saw her primary care doctor last week on either Sunday or Dr. Forde who started her back on her thyroid medicine. Can stop this medicine on her own 13 years ago because she did not like the way she felt. On this admission her TSH is elevated at 19. Troponins x2 are negative and I have ordered the third [address] scan of the abdomen last night showed the colon was full of "stool ". Ultrasound of the gallbladder was negative. CBC was normal We do not have gastroenterology and her primary care doc stated he was going to work this up as an outpatient. I have witnessed that she has had several bowel movement since admission with laxatives. Going to get a KUB to check her abdominal status. I think it would be good for her to see cardiology why she is here and they can determine if she needs further studies studies.
[2019-12-14 12:33] LABS: CREATINE KINASE MB 1.07 ng/mL (<4.55)
[2019-12-14 12:37] LABS: TROPONIN I < 0.012 ng/mL
--- NOTE | 2019-12-14 12:40 | RADIOLOGY REPORT (SQ) ---
EXAM DESCRIPTION: KUB/ABDOMEN (SINGLE VIEW) COMPLETED DATE/TIME: 12/14/2019 12:22 pm REASON FOR STUDY: Constipation COMPARISON: None. NUMBER OF VIEWS: One view. TECHNIQUE: Supine radiographic image of the abdomen acquired. LIMITATIONS: None. FINDINGS: BOWEL GAS PATTERN: NoneNormal bowel gas pattern. No dilated loops. CONSTIPATION: None CALCIFICATIONS: No suspicious calcifications. SOFT TISSUES: No gross mass or suggestion of organomegaly. HARDWARE: None in the abdomen. BONES: No acute fracture. No worrisome bone lesions. OTHER: No other significant finding. IMPRESSION: NO RADIOGRAPHIC EVIDENCE FOR ACUTE ABDOMINAL DISEASE. No constipation. TECHNICAL DOCUMENTATION: JOB ID: [id number] 2010 [employer]- All Rights Reserved Reading location - IP/workstation name: [email or web address]
[2019-12-14] MEDS ORDERED: LIDOCAINE 2% VISCOUS SOLN 15 ML UDCUP PO ONE (16:15)
[2019-12-14] MEDS ORDERED: MAG HYDROX/AL HYDROX/SIMETH SUSP 30 ML UDCUP PO ONE (16:15)
[2019-12-14] MEDS ORDERED: METOCLOPRAMIDE HCL ORAL SOLN 10 MG/10 ML UDCUP PO ONE (16:15)
[2019-12-14] MEDS ORDERED: METOCLOPRAMIDE HCL INJ/PF 10 MG/2 ML SDV ONE (16:32)
[2019-12-14] MEDS ORDERED: MAG HYDROX/AL HYDROX/SIMETH SUSP 30 ML UDCUP ONE (16:32)
[2019-12-14] MEDS ORDERED: LIDOCAINE 2% VISCOUS SOLN 15 ML UDCUP ONE (16:41)
--- NOTE | 2019-12-14 20:05 | PDOC CONSULTATION ---
Consultation-Blank Consultation: CARDIOLOGY CONSULTATION By Dr.Lakshmi Meléndez on 12/14/2019. Patient seen at 11 AM. 60 minutes spent as patient more than 50% of time spent in direct patient care. REASON FOR CONSULTATION: Patient with chest pain. CONSULT REQUESTING PROVIDER: Willie Peters. PAC, [place] [facility] hospitalist [facility] HISTORY OF PRESENT ILLNESS: Patient since the past 1 week has been having pains in the chest and epigastric area. She states there is constant pain which is like a sharp pain in the pressure-like sensation in the lower right rib cage and also in the xiphoid process and epigastrium. These areas are tender to touch and reproduces the patient's symptoms. It is not related to exertion. She also has nausea but has no vomiting. There is no fatty food intolerance. There is no history of hemoptysis hematemesis or melena or hematochezia. There is no prior history of peptic ulcer disease. There is no history of prior GERD or peptic ulcer disease. A week ago she went to the emergency room and [facility] and states had a negative work-up in the emergency room but did not have a stress test or an echo. She also states she has changed her primary care physician and she was told that she might have a hiatal hernia and imaging studies for this has been ordered as an outpatient. She also states that she was found to be hypothyroid and recently has been started on thyroid replacement medication. She does have a history of anxiety. There is no history of asthma but states she has COPD has not needed treatment for COPD. No cough wheezing or sputum production. There is no prior history of FL or an clear-cut anginal symptoms. There is no history of palpitations or dizziness or syncope there is no history of heart failure. There is no history of diabetes mellitus. There is no history of TIA or CVA. The patient is EKG shows right bundle branch block pattern, and a serial troponin and troponins are negative. The patient's TSH is elevated. And the patient is being placed on replacement Synthroid. She has a history of anxiety and has appeared to be depressed and her affect is flat. Past Medical History Pulmonary Medical History: Reports: Chronic Obstructive Pulmonary Disease (COPD) Endocrine Medical History: Reports: Hyperthyroidism - Initially with radioactive iodine therapy leading to hypothyroidism, Hypothyroidism Psychiatric Medical History: Reports: General Anxiety Disorder There is no history of FL, coronary artery disease, heart failure, cardiac arrhythmia, congestive heart failure, or diabetes mellitus. Past Surgical History Past Surgical History: Reports: Section Social History Information Source: Patient Lives with: Spouse/Significant other Smoking Status: Former Smoker Electronic Cigarette use?: Yes - Patient reports no cigarettes but does vape Frequency of Alcohol Use: Rare Hx Recreational Drug Use: No Hx Prescription Drug Abuse: No - Advance Directive Resuscitation Status: Full Code. is a surrogate healthcare decision maker. Family History Family History: Patient is a his mother had coronary artery disease at a young age.- Mother committed suicide Parental Family History Reviewed: Yes Children Family History Reviewed: Yes Sibling(s) Family History Reviewed.: Yes Medication/Allergy Home Medications: Buspirone HCl [Buspar 10 mg Tablet] 7.5 mg PO BID 12/14/19 Hydroxyzine Pamoate [Vistaril 25 mg Capsule] 25 mg PO Q8HP PRN 12/14/19 Levothyroxine Sodium [Synthroid 0.05 mg Tablet] 0.05 mg PO Q6AM 12/14/19 Zolpidem Tartrate [Ambien] 10 mg PO QHS 12/14/19 Allergies/Adverse Reactions: Penicillins Allergy (Verified 12/13/19 18:41). She states she is allergic to all cillins Review of Systems CONSTITUTIONAL: Denies any fever chills or Reiger's. Complains of generalized fatigue. EYES: No amblyopia diplopia. No amaurosis fugax. EARS: No history of hearing loss. No stiff tinnitus. MOUTH: No history of altered taste sensation. No ulcers in the mouth. THROAT: No history of odynophagia or dysphagia. No recurrent sore throats. SKIN: No history of pruritus. No history of allergic discoloration of the skin. No history of eczema. No history of skin cancer. Cardiovascular: PRESENT: chest pain. This is reproducible noncardiac chest pain. There is no PND orthopnea palpitations near syncope or syncope. There is no leg edema. There is no history of congestive heart failure. LUNGS: No history of asthma. She has a diagnosis of COPD, but has not needed treatment for this. No history of sleep apnea. No history of pulmonary embolism. No history of hemoptysis. No pleuritic chest pain. She has reproducible chest wall pain. Gastrointestinal: PRESENT: constipation. This constipation may be related to her hypothyroidism. There is no history of fatty food intolerance. No history of hepatitis. No history of jaundice. No history of GI bleed. 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 No history of headaches migraines or seizures. No gait imbalance. ENDOCRINE: Does have constipation. No history of polydipsia polyuria. History of cold intolerance present. Patient is hypothyroid. No history of diabetes mellitus. Past metabolic: There is no obesity. No history of hyperlipidemia or gout. RENAL: No history of chronic kidney disease. No symptoms of UTI. No hematuria pyuria or dysuria. VASCULAR: No history of DVT. No history of calf or buttock claudication. HEMATOLOGICAL: No history of bleeding diathesis no history of clotting disorders. PSYCHIATRIC: There is no suicidal or homicidal ideation. The patient does not appear to be anxious or agitated. She appears to be slightly withdrawn and her affect is flat. PHYSICAL EXAMINATION: The patient is well-built and well-nourished. At present in no acute distress. Selected Entries 12/14/19 09:07 Temperature 98.0 F Temperature Oral Source Pulse Rate 60 Respiratory 18 Rate Blood Pressure 149/80 H Blood Pressure 103 Mean BP Location Left Arm BP Position Supine O2 Sat by Pulse 100 Oximetry Oxygen Delivery Room Air Method HEAD: Is atraumatic normocephalic. EYES: Pupils are equal round regular reactive to light and accommodation. There is no conjunctival pallor. There is no scleral icterus. EARS: Tympanic membranes are intact. External auditory canals are clear. NOSE: There is no deviated nasal septum. There is no inflammation nasal mucous membrane. MOUTH: Mucous membranes of the mouth and tongue are moist. There is no ulcers. THROAT: There is no redness of the oropharynx. There is no exudates. SKIN: There is no skin rashes. There is no petechia or ecchymosis. There is no skin lesions. NECK: Supple. There is no JVD carotids are equal there is no bruits. There is no lymphadenopathy. There is no goiter. There is no accessory muscle respiration use. Trachea central. LUNGS: There is chest wall tenderness by pressing on the lower right rib cage and there is lower end of the sternum and especially the xiphoid process. This reproduces the patient's clinical symptoms of chest pain. There is slightly diminished air entry throughout and mildly prolonged expiratory phase. There is no rhonchi rales or wheezing. On percussion there is mild hyperresonance. HEART: S1-S2 is heard. There is no S3 gallop. There is no S4 gallop. There is systolic murmur left sternal border and the apex there is no rub. ABDOMEN: Soft. There is mild discomfort on palpating the epigastrium. There is no hepatosplenomegaly. Bowel sounds are well heard. There is no tender areas masses. EXTREMITIES:: Femorals are well felt there is no femoral bruits. Leg pulses well felt. There is no pedal edema. There is no DVT or cellulitis. There is no calf tenderness. SLAT BASKET TOP MAKER: The patient is conscious awake alert oriented x3 with no focal deficits. PSYCHIATRIC: The patient does appear to be slightly depressed and affect is flat and the patient is withdrawn but in spite of this his judgment and insight are intact. EKG: Shows sinus rhythm. Right bundle branch block pattern. Labs- Entire Visit 12/13/19 12/13/19 12/13/19 18:50 18:50 18:50 WBC 6.3 RBC 4.28 Hgb 13.7 Hct 40.1 MCV 94 MCH 32.0 MCHC 34.2 RDW 12.9 Plt Count 267 Lymph % (Auto) 18.4 Mcclain % (Auto) 6.9 Eos % (Auto) 1.5 Baso % (Auto) 0.6 Absolute Neuts (auto) 4.6 Absolute Lymphs (auto) 1.2 Absolute Monos (auto) 0.4 Absolute Eos (auto) 0.1 Absolute Basos (auto) 0.0 Seg Neutrophils % 72.6 ESR Sodium 140.1 Potassium 3.9 Chloride 103 Carbon Dioxide 32 H Anion Gap 5 BUN 12 Creatinine 0.75 Est GFR ( Amer) > 60 Est GFR (MDRD) Non-Af > 60 Glucose 61 L POC Glucose Calcium 10.0 Total Bilirubin 0.7 Direct Bilirubin 0.0 Neonat Total Bilirubin Not Reportable Neonat Direct Bilirubin Not Reportable Neonat Indirect Bili Not Reportable AST 22 ALT 16 Alkaline Phosphatase 52 CK-MB (CK-2) Troponin I < 0.012 Total Protein 7.4 Albumin 4.4 Lipase 216.4 TSH Urine Color Urine Appearance Urine pH Ur Specific Winnett Urine Protein Urine Glucose (UA) Urine Ketones Urine Blood Urine Nitrite (Reflex) Urine Bilirubin Urine Urobilinogen Leukocyte Esterase Rfl Urine RBC (Auto) Urine WBC (Reflex) Squamous Epi Cells Auto Urine Mucus (Auto) Urine Ascorbic Acid 12/13/19 12/13/19 12/13/19 18:50 20:35 21:17 WBC RBC Hgb Hct MCV MCH MCHC RDW Plt Count Lymph % (Auto) Mcclain % (Auto) Eos % (Auto) Baso % (Auto) Absolute Neuts (auto) Absolute Lymphs (auto) Absolute Monos (auto) Absolute Eos (auto) Absolute Basos (auto) Seg Neutrophils % ESR Sodium Potassium Chloride Carbon Dioxide Anion Gap BUN Creatinine Est GFR ( Amer) Est GFR (MDRD) Non-Af Glucose POC Glucose 97 Calcium Total Bilirubin Direct Bilirubin Neonat Total Bilirubin Neonat Direct Bilirubin Neonat Indirect Bili AST ALT Alkaline Phosphatase CK-MB (CK-2) Troponin I Total Protein Albumin Lipase TSH 19.60 H Urine Color STRAW Urine Appearance CLEAR Urine pH 6.0 Ur Specific Winnett 1.009 Urine Protein NEGATIVE Urine Glucose (UA) NEGATIVE Urine Ketones NEGATIVE Urine Blood MODERATE H Urine Nitrite (Reflex) NEGATIVE Urine Bilirubin NEGATIVE Urine Urobilinogen NEGATIVE Leukocyte Esterase Rfl NEGATIVE Urine RBC (Auto) 2 Urine WBC (Reflex) 1 Squamous Epi Cells Auto 3 Urine Mucus (Auto) RARE Urine Ascorbic Acid NEGATIVE 12/13/19 12/14/19 12/14/19 23:59 06:46 11:56 WBC RBC Hgb Hct MCV MCH MCHC RDW Plt Count Lymph % (Auto) Mcclain % (Auto) Eos % (Auto) Baso % (Auto) Absolute Neuts (auto) Absolute Lymphs (auto) Absolute Monos (auto) Absolute Eos (auto) Absolute Basos (auto) Seg Neutrophils % ESR Sodium Potassium Chloride Carbon Dioxide Anion Gap BUN Creatinine Est GFR ( Amer) Est GFR (MDRD) Non-Af Glucose POC Glucose 87 Calcium Total Bilirubin Direct Bilirubin Neonat Total Bilirubin Neonat Direct Bilirubin Neonat Indirect Bili AST ALT Alkaline Phosphatase CK-MB (CK-2) 1.07 Troponin I < 0.012 < 0.012 Total Protein Albumin Lipase TSH Urine Color Urine Appearance Urine pH Ur Specific Winnett Urine Protein Urine Glucose (UA) Urine Ketones Urine Blood Urine Nitrite (Reflex) Urine Bilirubin Urine Urobilinogen Leukocyte Esterase Rfl Urine RBC (Auto) Urine WBC (Reflex) Squamous Epi Cells Auto Urine Mucus (Auto) Urine Ascorbic Acid 12/14/19 11:56 WBC RBC Hgb Hct MCV MCH MCHC RDW Plt Count Lymph % (Auto) Mcclain % (Auto) Eos % (Auto) Baso % (Auto) Absolute Neuts (auto) Absolute Lymphs (auto) Absolute Monos (auto) Absolute Eos (auto) Absolute Basos (auto) Seg Neutrophils % ESR 8 Sodium Potassium Chloride Carbon Dioxide Anion Gap BUN Creatinine Est GFR ( Amer) Est GFR (MDRD) Non-Af Glucose POC Glucose Calcium Total Bilirubin Direct Bilirubin Neonat Total Bilirubin Neonat Direct Bilirubin Neonat Indirect Bili AST ALT Alkaline Phosphatase CK-MB (CK-2) Troponin I Total Protein Albumin Lipase TSH Urine Color Urine Appearance Urine pH Ur Specific Winnett Urine Protein Urine Glucose (UA) Urine Ketones Urine Blood Urine Nitrite (Reflex) Urine Bilirubin Urine Urobilinogen Leukocyte Esterase Rfl Urine RBC (Auto) Urine WBC (Reflex) Squamous Epi Cells Auto Urine Mucus (Auto) Urine Ascorbic Acid Chest X-Ray 12/13/19 18:42 IMPRESSION: NO ACUTE FINDINGS. Abdomen Ultrasound 12/13/19 20:12 IMPRESSION: Unremarkable exam. Abdomen/Pelvis CT 12/13/19 22:18 IMPRESSION: Large amount of stool in the colon. Negative for urinary tract calculus or hydronephrosis KUB X-Ray 12/14/19 00:00 IMPRESSION: NO RADIOGRAPHIC EVIDENCE FOR ACUTE ABDOMINAL DISEASE. No constipation. IMPRESSION/RECOMMENDATION: 1. Noncardiac chest wall pain: So far cardiac enzymes are negative. 2. Hypothyroidism: Patient is being replaced with Synthroid. 3. Right bundle branch block pattern by EKG. 4. Systolic murmur:? Mitral regurgitation? Severity. 5. History of anxiety continue anti-anxiolytic agents. 6. COPD by history: Seems to be very mild and not on or requiring any treatment for this 7. Coronary artery disease risk factors are 1 patient's age,? Lipid status, family history of CAD, and patient is EKG showing right bundle branch block pattern. Recommendations current medications reviewed. Medical regimen and management plan discussed with the attending provider. We will schedule the patient for IV Lexiscan Cardiolite stress test in the a.m. since the patient needs to be started on Synthroid and maybe the dose needs to be increased. Hence we will make sure that the patient does not have any significant underlying coronary artery disease. We will also check an echo to assess the patient is chest pain and murmur. Medical decision making is of moderate to high complexity. 60 minutes spent as patient more than 50% of time spent in direct patient care. Will follow.
[2019-12-14] MEDS: LORAZEPAM INJ 2 MG/1 ML VIAL IV PRN (20:27)
[2019-12-15] MEDS: NORMAL SALINE 1000 ML 1,000 ML IV PRN ×3 (01:27→22:08)
[2019-12-15 05:53] LABS: ALBUMIN 3.3 g/dL (3.5-5.0); ALKALINE PHOSPHATASE 54 U/L (38-126); ASPARTATE AMINO TRANSFERASE 22 U/L (14-36); BILIRUBIN,DIRECT 0.5 mg/dL (0.0-0.4); BILIRUBIN,TOTAL 0.7 mg/dL (0.2-1.3); TOTAL PROTEIN 6.1 g/dL (6.3-8.2); TRIGLYCERIDES 130 mg/dL (<150)
[2019-12-15 06:04] LABS: DIRECT LDL 69 mg/dL (<100)
[2019-12-15] MEDS: PANTOPRAZOLE SODIUM 40 MG TABLET.DR PO SCH ×2 (06:19→16:06)
[2019-12-15] MEDS: HEPARIN SOD (PORCINE) 5,000 UNIT/ML 1 ML VIAL SUBCUT SCH ×3 (06:23→22:09)
[2019-12-15] MEDS: BUSPIRONE HCL 10 MG TABLET PO SCH ×2 (10:44→22:09)
[2019-12-15] MEDS: LORAZEPAM INJ 2 MG/1 ML VIAL IV PRN ×2 (10:44→18:17)
[2019-12-15] MEDS: SUCRALFATE 1 GM TABLET PO SCH ×4 (10:44→22:09)
[2019-12-15] MEDS ORDERED: LEVOTHYROXINE SODIUM 0.05 MG TABLET PO ONE (12:02)
[2019-12-15] MEDS: BUTALB/ACETAMINOPHEN/CAFFEINE 1 TAB EACH PO PRN ×2 (12:41→20:46)
--- NOTE | 2019-12-15 13:46 | RADIOLOGY REPORT (SQ) ---
EXAM DESCRIPTION: UGI W/ DOUBLE CONTRAST COMPLETED DATE/TIME: 12/15/2019 11:26 am REASON FOR STUDY: GERD, epigastric pain COMPARISON: None. TECHNIQUE: Under fluoroscopic guidance, patient ingested effervescent granules followed by thick and thin barium. Fluoroscopic spot images and routine radiographic images acquired and stored on PACS. 12 MM BARIUM TABLET GIVEN: Yes. No significant delay in passage. LIMITATIONS: None. FLUOROSCOPY TIME: FLUORO TIME: 2.1 MINUTES OF FLUOROSCOPY WAS USED. 20 images saved to PACS. FINDINGS: NEUROMUSCULAR COORDINATION OF SWALLOW: Normal. No aspiration. ESOPHAGEAL MOTILITY: Normal peristalsis. No esophageal spasm. ESOPHAGEAL MUCOSA: Normal mucosa without masses or ulceration. GASTRO-ESOPHAGEAL JUNCTION: No hiatal hernia or reflux. 12 mm barium tablet passed through the GE ju nction without delay. STOMACH: Normal without masses or ulcerations. GASTRIC OUTLET: No delay in emptying. Normal pylorus. DUODENAL BULB: Normal distention. No spasm or ulceration. DUODENUM: Mucosa normal. No extrinsic masses or malrotation. PROXIMAL SMALL BOWEL: Mucosa normal. No extrinsic masses or malrotation. NON-GI TRACT STRUCTURES: No significant finding. OTHER: No other significant finding. IMPRESSION: NORMAL DOUBLE CONTRAST BARIUM SWALLOW / UPPER GI SERIES. COMMENT: Quality ID [id number]: Final reports for procedures using fluoroscopy that document radiation exp osure indices, or exposure time and number of fluorographic images (if radiation exposure indices are not available) TECHNICAL DOCUMENTATION: JOB ID: [id number] 2010 [employer]- All Rights Reserved Reading location - IP/workstation name: [email or web address] [id number]
--- NOTE | 2019-12-15 16:13 | PDOC PROGRESS REPORT ---
Subjective Progress Note for:: 12/15/19 Reason For Visit: ABDOMINAL PAIN,CONSTIPATION,HYPOTHYROIDISM, 12/15/2019 Patient admitted through the emergency room for currently epigastric pain, abdominal pain, chest wall pain. Physical Exam Vital Signs: Temp Pulse Resp BP Pulse Ox 97.7 F 62 16 176/100 H 100 12/15/19 11:48 12/15/19 11:48 12/15/19 11:48 12/15/19 11:48 12/15/19 11:48 Intake & Output 12/14/19 12/15/19 12/16/19 06:59 06:59 06:59 Intake Total 3285 1000 Output Total Balance 3285 1000 Weight 61.9 kg General appearance: PRESENT: no acute distress, other - Patient is complaining of epigastric pain asking for pain medicine Respiratory exam: PRESENT: clear to auscultation goran. ABSENT: rales, rhonchi, wheezes Cardiovascular exam: PRESENT: RRR. ABSENT: diastolic murmur, rubs, systolic murmur GI/Abdominal exam: PRESENT: tenderness - To the sternum Neurological exam: PRESENT: alert, awake, oriented to person, oriented to place, oriented to time, oriented to situation, CN II-XII grossly intact. ABSENT: motor sensory deficit Psychiatric exam: PRESENT: unusual affect - Patient is somewhat difficult to evaluate because she is so demanding about her complaints. Results Laboratory Results: 12/13/19 18:50 12/13/19 18:50 12/15/19 04:55 Total Bilirubin 0.7 AST 22 Alkaline Phosphatase 54 Total Protein 6.1 L Albumin 3.3 L Triglycerides 130 Cholesterol 145.10 LDL Cholesterol Direct 69 VLDL Cholesterol 26.0 HDL Cholesterol 65 12/13/19 12/13/19 12/14/19 18:50 23:59 11:56 CK-MB (CK-2) 1.07 Troponin I < 0.012 < 0.012 < 0.012 Impressions: Chest X-Ray 12/13/19 18:42 IMPRESSION: NO ACUTE FINDINGS. Abdomen Ultrasound 12/13/19 20:12 IMPRESSION: Unremarkable exam. Abdomen/Pelvis CT 12/13/19 22:18 IMPRESSION: Large amount of stool in the colon. Negative for urinary tract calculus or hydronephrosis TECHNICAL DOCUMENTATION: Quality ID # [id number]: Final reports with documentation of one or more dose reduction techniques (e.g., Automated exposure control, adjustment of the mA and/or kV according to patient size, use of iterative reconstruction technique) copyright 2011 [employer]- All Rights Reserved KUB X-Ray 12/14/19 00:00 IMPRESSION: NO RADIOGRAPHIC EVIDENCE FOR ACUTE ABDOMINAL DISEASE. No constipation. Upper GI/Barium Swallow X-Ray 12/15/19 00:00 IMPRESSION: NORMAL DOUBLE CONTRAST BARIUM SWALLOW / UPPER GI SERIES. Assessment and Plan - Diagnosis (1) Chest wall pain Is this a current diagnosis for this admission?: Yes (2) Anxiety Is this a current diagnosis for this admission?: Yes (3) Chest pain Qualifiers: Chest pain type: unspecified Qualified Code(s): R07.9 - Chest pain, unspecified Is this a current diagnosis for this admission?: Yes (4) Constipation Qualifiers: Constipation type: slow transit constipation Qualified Code(s): K59.01 - Slow transit constipation Is this a current diagnosis for this admission?: Yes (5) Epigastric abdominal pain Is this a current diagnosis for this admission?: Yes (6) Hypothyroidism Qualifiers: Hypothyroidism type: postablative Qualified Code(s): E89.0 - Postprocedural hypothyroidism Is this a current diagnosis for this admission?: Yes - Plan Summary Summary: Patient tells me that 13 years ago she stopped taking her Synthroid because she did not like the way it made her feel. Just last week her primary care provider who she saw for the first time started her back on Synthroid 0.050 mg. Her TSH on this admission was 19. Other pertinent findings were a CT scan of the abdomen and pelvis which showed a large amount of stool in the colon. Since then patient has continued to complain of epigastric pain and according to the retail business analyst when he examined her her pain was very reproducible over the sternum. Patient had several bowel movements as a result of medications and follow-up KUB showed no obstructions, no significant stool. Patient had a upper GI and barium swallow today which was completely normal. Echo from today is pending She is scheduled to have a stress test tomorrow morning. Patient was asking for pain medicine and I ordered her plain Fioricet. If the stress test is normal tomorrow and her echo shows no pathology then she could be discharged to follow-up with her primary care provider concerning her hypothyroidism and chest wall pain as well as epigastric pain. I do feel that patient's anxiety is a significant component to her complaints - Time Time Spent with patient: 35 or more minutes
--- NOTE | 2019-12-15 17:01 | XCELERA REPORT ---
[address] [address] Transthoracic Echocardiogram Report Name: SPENCER MORAN Age: 54 yrs Gender: Female : 1965 Patient Status: Inpatient Patient Location: [address] [place] [address] Study Date: 12/15/2019 07:29 AM Height: 64 in Weight: 136 lb BSA: 1.7 m2 Procedure: A two-dimensional transthoracic echocardiogram with color flow and Doppler was performed. Study Quality: Fair. Reason For Study: Chest Pain /Murmur ? R94.31 History: Chest Pain /Murmur ? R94.31. Ordering Physician: NAN ROY Performed By: Tarsha Martinez Interpretation Summary The left ventricle is normal in size. There is normal left ventricular wall thickness. LV EF is 70% Left ventricular systolic function is normal. Doppler measurements suggest normal left ventricular diastolic function The left ventricular wall motion is normal. There is no thrombus. No ASD , VSD or PFO seen. The right ventricle is normal in size and function. The right atrium is normal. The left atrial size is normal. There is no evidence of mitral valve prolapse. There is no vegetation seen on the mitral valve. There is no mitral valve stenosis. There is no mitral regurgitation noted. There is no aortic valvular vegetation. There is no aortic valve stenosis There is no LVOT obstruction. No aortic regurgitation is present. There is no tricuspid stenosis. There is a trace to mild amount of tricuspid regurgitation There is mild pulmonary hypertension by echo RVSP is 30 to 35 mm of HG with RA mean of 5 to 10. There is no pulmonic valvular stenosis. There is a trace amount of pulmonic regurgitation The aortic root is normal size. The inferior vena cava appeared normal and decreased > 50% with respiration (RAP 5-10 mmHg) There is no pericardial effusion. MMode/2D Measurements & Calculations RVDd: 1.9 cm LVIDd: 4.6 cm FS: 39.9 % Ao root diam: 2.7 cm IVSd: 0.92 cm LVIDs: 2.8 cm EDV(Teich): 96.4 ml Ao root area: 5.7 cm2 LVPWd: 0.89 cm ESV(Teich): 28.3 ml EF(Teich): 70.6 % Doppler Measurements & Calculations MV E max gregorio: MV dec slope: Ao V2 max: LV V1 max P.3 cm/sec 588.0 cm/sec2 129.4 cm/sec 5.4 mmHg MV A max gregorio: MV dec time: 0.18 secAo max PG: LV V1 max: 80.9 cm/sec 6.7 mmHg 116.3 cm/sec MV E/A: 1.3 PI end-d gregorio: TR max gregorio: 86.9 cm/sec 248.9 cm/sec TR max P.8 mmHg Left Ventricle The left ventricle is normal in size. There is normal left ventricular wall thickness. LV EF is 70%. Left ventricular systolic function is normal. Doppler measurements suggest normal left ventricular diastolic function. The left ventricular wall motion is normal. There is no thrombus. No ASD , VSD or PFO seen. Right Ventricle The right ventricle is normal in size and function. Atria The right atrium is normal. The left atrial size is normal. Mitral Valve There is no evidence of mitral valve prolapse. There is no vegetation seen on the mitral valve. There is no mitral valve stenosis. There is no mitral regurgitation noted. Aortic Valve There is no aortic valvular vegetation. There is no aortic valve stenosis. There is no LVOT obstruction. No aortic regurgitation is present. Tricuspid Valve There is no tricuspid stenosis. There is a trace to mild amount of tricuspid regurgitation. There is mild pulmonary hypertension by echo. RVSP is 30 to 35 mm of HG with RA mean of 5 to 10. Pulmonic Valve There is no pulmonic valvular stenosis. There is a trace amount of pulmonic regurgitation. Great Vessels The aortic root is normal size. The inferior vena cava appeared normal and decreased > 50% with respiration (RAP 5-10 mmHg). Effusions There is no pericardial effusion. : NAN ROY Lakshmi
--- NOTE | 2019-12-15 17:03 | Progress Note ---
Provider Note Provider Note: CARDIOLOGY progress note by Dr. Nan Meléndez on 12/15/2019 Subjective: The patient continues to complain of abdominal pain she was obsessed with the fact that she has hiatal hernia. But after I told her that upper GI/barium study was normal she states that she is concerned that she now has a ventral hernia. She appears to be asking for pain medications too often. She could not have a stress test today because right dose of Cardiolite was not ordered. There is no arrhythmias on the monitor. She appears to be distraught and emotionally upset. There is no chest pain today but there is epigastric pain. But on palpation it is nontender. PHYSICAL EXAMINATION: The patient is well-built. She is in distress due to emotionally being upset. Selected Entries 12/15/19 08:00 Temperature 97.9 F Temperature Oral Source Pulse Rate 63 Respiratory 16 Rate Blood Pressure 126/62 H [Upper Arm] Blood Pressure 83 Mean [Upper Arm ] Blood Pressure Supine Position [Upper Arm] O2 Sat by Pulse 97 Oximetry Oxygen Delivery Room Air Method ( includes room air) HEAD: Is atraumatic normocephalic. EYES: Pupils are equal round regular reactive to light and accommodation. There is no conjunctival pallor. There is no scleral icterus. EARS: Tympanic membranes are intact. External auditory canals are clear. NOSE: There is no deviated nasal septum. There is no inflammation nasal mucous membrane. MOUTH: Mucous membranes of the mouth and tongue are moist. There is no ulcers. THROAT: There is no redness of the oropharynx. There is no exudates. SKIN: There is no skin rashes. There is no petechia or ecchymosis. There is no skin lesions. NECK: Supple. There is no JVD carotids are equal there is no bruits. There is no lymphadenopathy. There is no goiter. There is no accessory muscle respiration use. Trachea central. LUNGS: There is chest wall tenderness by pressing on the lower right rib cage and there is lower end of the sternum and especially the xiphoid process. This reproduces the patient's clinical symptoms of chest pain. There is slightly diminished air entry throughout and mildly prolonged expiratory phase. There is no rhonchi rales or wheezing. On percussion there is mild hyperresonance. HEART: S1-S2 is heard. There is no S3 gallop. There is no S4 gallop. There is systolic murmur left sternal border and the apex there is no rub. ABDOMEN: Soft. There is mild discomfort on palpating the epigastrium. There is no hepatosplenomegaly. Bowel sounds are well heard. There is no tender areas masses. EXTREMITIES:: Femorals are well felt there is no femoral bruits. Leg pulses well felt. There is no pedal edema. There is no DVT or cellulitis. There is no calf tenderness. 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 PSYCHIATRIC: The patient does appear to be chest and emotionally upset. Labs- All tests 24 hr 12/15/19 04:55 Total Bilirubin 0.7 Direct Bilirubin 0.5 H Neonat Total Bilirubin Not Reportable Neonat Direct Bilirubin Not Reportable Neonat Indirect Bili Not Reportable AST 22 ALT 14 Alkaline Phosphatase 54 Total Protein 6.1 L Albumin 3.3 L Triglycerides 130 Cholesterol 145.10 LDL Cholesterol Direct 69 VLDL Cholesterol 26.0 HDL Cholesterol 65 Chest X-Ray 12/13/19 18:42 IMPRESSION: NO ACUTE FINDINGS. Abdomen Ultrasound 12/13/19 20:12 IMPRESSION: Unremarkable exam. Abdomen/Pelvis CT 12/13/19 22:18 IMPRESSION: Large amount of stool in the colon. Negative for urinary tract calculus or hydronephrosis TECHNICAL DOCUMENTATION: Quality ID # [id number]: Final reports with documentation of one or more dose reduction techniques (e.g., Automated exposure control, adjustment of the mA and/or kV according to patient size, use of iterative reconstruction technique) copyright 2011 [employer]- All Rights Reserved KUB X-Ray 12/14/19 00:00 IMPRESSION: NO RADIOGRAPHIC EVIDENCE FOR ACUTE ABDOMINAL DISEASE. No constipation. Upper GI/Barium Swallow X-Ray 12/15/19 00:00 IMPRESSION: NORMAL DOUBLE CONTRAST BARIUM SWALLOW / UPPER GI SERIES. ECHO CARDDIOGRAM ( 12/15/2019) The left ventricle is normal in size. There is normal left ventricular wall thickness. LV EF is 70% Left ventricular systolic function is normal. Doppler measurements suggest normal left ventricular diastolic function The left ventricular wall motion is normal. There is no thrombus. No ASD , VSD or PFO seen. The right ventricle is normal in size and function. The right atrium is normal. The left atrial size is normal. There is no evidence of mitral valve prolapse. There is no vegetation seen on the mitral valve. There is no mitral valve stenosis. There is no mitral regurgitation noted. There is no aortic valvular vegetation. There is no aortic valve stenosis There is no LVOT obstruction. No aortic regurgitation is present. There is no tricuspid stenosis. There is a trace to mild amount of tricuspid regurgitation There is mild pulmonary hypertension by echo RVSP is 30 to 35 mm of HG with RA mean of 5 to 10. There is no pulmonic valvular stenosis. There is a trace amount of pulmonic regurgitation The aortic root is normal size. The inferior vena cava appeared normal and decreased > 50% with respiration (RAP 5-10 mmHg) There is no pericardial effusion. IMPRESSION/RECOMMENDATION: 1. Noncardiac chest wall pain: So far cardiac enzymes are negative. 2. Hypothyroidism: Patient is being replaced with Synthroid. 3. Right bundle branch block pattern by EKG. 4. Systolic murmur:? Mitral regurgitation? Severity. 5. History of anxiety continue anti-anxiolytic agents. 6. COPD by history: Seems to be very mild and not on or requiring any treatment for this 7. Coronary artery disease risk factors are 1 patient's age,? Lipid status, family history of CAD, and patient is EKG showing right bundle branch block pattern. Medications reviewed. Medications regimen and management plan discussed with attending provider on the case. Medical decision making is a moderate complexity, but a lot of time was spent counseling the patient. 40 minutes spent on this patient with more than 50% time spent in direct patient care. Will follow.
[2019-12-15] MEDS: KETOROLAC TROMETHAMINE INJ/PF 30 MG/1 ML SDV IV SCH (18:16)
[2019-12-15] MEDS: MAG HYDROX/AL HYDROX/SIMETH SUSP 30 ML UDCUP PO PRN (18:19)
[2019-12-15] MEDS: ZOLPIDEM TARTRATE 5 MG TABLET PO PRN (22:09)
[2019-12-16] MEDS: KETOROLAC TROMETHAMINE INJ/PF 30 MG/1 ML SDV IV SCH ×3 (00:34→12:02)
[2019-12-16] MEDS: HEPARIN SOD (PORCINE) 5,000 UNIT/ML 1 ML VIAL SUBCUT SCH (05:53)
[2019-12-16] MEDS: PANTOPRAZOLE SODIUM 40 MG TABLET.DR PO SCH ×2 (05:54→17:01)
[2019-12-16] MEDS: NORMAL SALINE 1000 ML 1,000 ML IV PRN (05:58)
[2019-12-16] MEDS ORDERED: LEVOTHYROXINE SODIUM 0.05 MG TABLET PO SCH (06:00)
[2019-12-16] MEDS: SUCRALFATE 1 GM TABLET PO SCH ×3 (08:00→17:01)
[2019-12-16] MEDS ORDERED: LEVOTHYROXINE SODIUM 0.05 MG TABLET PO ONE (12:00)
[2019-12-16] MEDS: BUSPIRONE HCL 10 MG TABLET PO SCH (12:01)
[2019-12-16] MEDS: LORAZEPAM INJ 2 MG/1 ML VIAL IV PRN (12:12)
[2019-12-16] MEDS ORDERED: REGADENOSON INJ 0.4 MG/5 ML DISP.SYRIN IV ONE (12:40)
[2019-12-16] MEDS: BUTALB/ACETAMINOPHEN/CAFFEINE 1 TAB EACH PO PRN (17:25)
[2019-12-16] MEDS: MAG HYDROX/AL HYDROX/SIMETH SUSP 30 ML UDCUP PO PRN (17:26)
[2019-12-16 18:28] VITALS: BP 151/94
--- NOTE | 2019-12-16 22:54 | Progress Note ---
Provider Note Provider Note: Cardiology Progess note By Dr.Lakshmi Meléndez on 12/16/2019. Subjective: The patient continues to have noncardiac chest pain. She did not have chest pain when she had the stress test. The stress test was uneventful. She has complaints of reproducible right lower chest and epigastric pain when I saw her to discuss the stress test findings. There is no shortness of breath. There is no PND orthopnea. There is no arrhythmia seen on the monitor. The patient is constantly asking for pain medication. I have reassured the patient that her stress test is negative and that her chest pains are noncardiac. PHYSICAL EXAMINATION: The patient is well-built, appears to be significantly depressed Selected Entries 12/16/19 12/16/19 15:49 16:00 Temperature 98.6 F Temperature Oral Source Pulse Rate 79 Respiratory 16 Rate Blood Pressure 143/89 H [Upper Arm] O2 Sat by Pulse 99 98 Oximetry Oxygen Delivery Room Air Method ( includes room air) HEAD: Is atraumatic normocephalic. EYES: Pupils are equal round regular reactive to light and accommodation. There is no conjunctival pallor. There is no scleral icterus. EARS: Tympanic membranes are intact. External auditory canals are clear. NOSE: There is no deviated nasal septum. There is no inflammation nasal mucous membrane. MOUTH: Mucous membranes of the mouth and tongue are moist. There is no ulcers. THROAT: There is no redness of the oropharynx. There is no exudates. SKIN: There is no skin rashes. There is no petechia or ecchymosis. There is no skin lesions. NECK: Supple. There is no JVD carotids are equal there is no bruits. There is no lymphadenopathy. There is no goiter. There is no accessory muscle respiration use. Trachea central. LUNGS: There is chest wall tenderness by pressing on the lower right rib cage and there is lower end of the sternum and especially the xiphoid process. This reproduces the patient's clinical symptoms of chest pain. There is slightly diminished air entry throughout and mildly prolonged expiratory phase. There is no rhonchi rales or wheezing. On percussion there is mild hyperresonance. HEART: S1-S2 is heard. There is no S3 gallop. There is no S4 gallop. There is systolic murmur left sternal border and the apex there is no rub. ABDOMEN: Soft. There is mild discomfort on palpating the epigastrium. There is no hepatosplenomegaly. Bowel sounds are well heard. There is no tender areas masses. EXTREMITIES:: Femorals are well felt there is no femoral bruits. Leg pulses well felt. There is no pedal edema. There is no DVT or cellulitis. There is no calf tenderness. 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 PSYCHIATRIC: The patient does appear to be slightly depressed and affect is flat and the patient is withdrawn but in spite of this his judgment and insight are intact. IV LEXISCAN CARDIOLITE STRESS TEST: This shows no reversible ischemia and no evidence of myocardial infarction or scar. This has been discussed with the patient in depth. IMPRESSION/RECOMMENDATION: 1. Noncardiac chest wall pain: So far cardiac enzymes are negative. This is clearly noncardiac with and also stress test Cardiolite has been negative. 2. Hypothyroidism: Patient is being replaced with Synthroid. 3. Right bundle branch block pattern by EKG. 4. Systolic murmur:? Mitral regurgitation? Severity. 5. History of anxiety continue anti-anxiolytic agents. 6. COPD by history: Seems to be very mild and not on or requiring any treatment for this. Medications reviewed. Medical regimen and management plan discussed with attending provider on the case. Medical decision making is of moderate to high complexity in view of the significant amount of time to convince the patient that her chest wall pain is noncardiac. 40 minutes spent on the patient more than 50% of time spent in direct patient care. Will sign off. Selected Entries
--- NOTE | 2019-12-17 00:04 | DRAGON STRESS TEST REPORT ---
Intravenous Lexiscan Cardiolite stress test using single photon emmision computerized tomography. Date of procedure: 12/16/2019.Ordering Provider: Dr. Nan Meléndez.Patient's status: Inpatient. Indication: Chest pain, and abnormal EKG. Coronary risk factors: Age, family history of coronary artery disease. Resting EKG: Sinus Rhythm. Right bundle branch block pattern Stress EKG: No changes of ischemia. No chest pain or discomfort, and there were no arrhythmias seen. Reason for termination: Protocol. Conclusions: Normal EKG and hemodynamic response to IV Lexiscan. Nuclear data: At rest the patient was given 10.55 millicuries of technetium 99m sestamibi injected intravenously. As per protocol rest non gated SPECT images were obtained. Subsequently the patient was given intravenous Lexiscan at a dose of 0.4 mg in 5 mL intravenously, followed by flush with normal saline. Subsequently the stress dose of 32.5 millicuries of technetium 99m sestamibi was injected intravenously. As per protocol stress gated images were obtained. Nuclear interpretation: Review of images showed that all segments of the myocardium had normal perfusion at rest, and normal perfusion post stress with IV Lexiscan. All segments of the myocardium had normal motion, contraction, and thickening by gated study. T. I D. ratio was normal at 0.85. There is no transient ischemic dilatation of the left ventricle. Computer read rest, and stress left ventricular ejection fraction were 62 %, and 66 %, respectively. Conclusion: 1. There is no scintigraphic evidence of Lexiscan induced myocardial ischemia. 2. There is no scintigraphic evidence of myocardial infarction/scar. Recommendations: Aggressive risk factor modification, and treating the underlying co- morbidities. MTDD
--- NOTE | 2019-12-22 22:22 | PDOC DISCHARGE SUMMARY ---
Impression - Admit/DC Date/PCP Admission Date/Primary Care Provider: 12/14/19 03:26 SUNNY RAMIRES DO Discharge Date: 12/16/19 - Additional Information Resuscitation Status: Full Code Discharge Diet: Cardiac Discharge Activity: Activity As Tolerated, Balance Activity w/Rest Referrals: ANDRE ROY MD [ACTIVE STAFF] - 12/26/19 10:30 am (12/16 @1200 left a message for patient about appt.) SUNNY RAMIRES DO [Primary Care Provider] - 12/31/19 11:00 am (12/16 @1200 left a message for patient about appt) Prescriptions: Pantoprazole Sodium [Protonix [address] Tablet] 40 mg PO DAILY #30 tablet.dr Home Medications: Buspirone HCl [Buspar 10 mg Tablet] 7.5 mg PO BID 12/14/19 Hydroxyzine Pamoate [Vistaril 25 mg Capsule] 25 mg PO Q8HP PRN 12/14/19 Levothyroxine Sodium [Synthroid 0.05 mg Tablet] 0.05 mg PO Q6AM 12/14/19 Zolpidem Tartrate [Ambien] 10 mg PO QHS 12/14/19 Pantoprazole Sodium [Protonix [address] Tablet] 40 mg PO DAILY #30 tablet.dr 12/16/19 Hydrocodone/Acetaminophen [[place] 5-325 mg Tablet] 1 tab PO Q4 PRN #15 tablet 12/19/19 Sucralfate [Carafate 1 gm Tablet] 1 gm PO ACHS #120 tablet 12/19/19 History of Present Illiness History of Present Illness: Per H&P by Dr. Lassiter: SPENCER MORAN is a 54 year old female with diffuse c omplaints of abdominal pain mostly in the epigastrium and under the distal sternum. She has seen a new primary care provider and he has suggested that this could be a hiatal hernia or gastritis/esophagitis. He is currently scheduling an outpatient imaging study as a first step. In addition CT scan does show significant constipation although the patient reports moving her bowels regularly. She had radioactive iodine treatment for her hyperthyroidism and is now hypothyroid but she is not been taking her levothyroxine. Lastly she suffers from significant anxiety. The initial troponins are negative and I do not believe this has any bearing on her cardiac status. I believe her pain is related to constipation and likely esophagitis/gastritis. Work-up reveals a normal CBC. TSH is 19.6. Troponins are less than 0.012 and her sed rate is normal. She will be admitted to observation status. Monitor on telemetry. Continue laxative administration and proton pump inhibitors along with Carafate. Hospital Course Hospital Course: The patient was admitted to the medical floor and monitored on continuous cardiac telemetry. EKG demonstrated normal sinus rhythm. She remained in NSR throughout her admission without any aberrant rhythms noted on telemetry monitoring. Her abdominal/epigastric chest discomfort was evaluated with a KUB, CT ABD/pelv is (significant for large stool in the colon), abdominal ultrasound, and upper GI/barium swallow study; all of which were negative for acute findings. The patient's chest discomfort was evaluated with echocardiogram which demonstrated LVEF of 70% with mild pulmonary hypertension, and a Cardiolite stress test which was normal. Laboratory evaluation was unremarkable other than a TSH of 19.60. The patient's constipation was excessively treated and she is now having normal bowel movements. And the patient's primary care provider had recently started her on levothyroxine and it is not yet time to make any dose adjustments. She will require additional thyroid monitoring in 4 to 6 weeks per PCP. The patient was determined to have a noncardiac source of her chest discomfort. She likely has a large component of anxiety contributing to her discomfort. She is recommended to follow-up with her primary care provider to discuss any additional outpatient testing that might be undertaken to rule out noncardiac causes of discomfort. In the interim, she is started on Protonix. Her home medication regiment already includes Carafate, Vistaril, and BuSpar. Patient is discharged home in stable condition. She describes follow-up with her primary care provider within 1 week. She is instructed to take her medications as prescribed. She is encouraged to return to the emergency department as needed for any concerning symptoms. Physical Exam Vital Signs: Temp Pulse Resp BP Pulse Ox 98.6 F 79 14 151/94 H 98 12/16/19 16:00 12/16/19 16:00 12/16/19 16:00 12/16/19 16:00 12/16/19 16:00 General appearance: PRESENT: no acute distress, disheveled, well-developed, well-nourished, other - Overweight Head exam: PRESENT: atraumatic, normocephalic Eye exam: PRESENT: conjunctiva pink, EOMI, PERRLA. ABSENT: scleral icterus Mouth exam: PRESENT: moist, tongue midline Teeth exam: PRESENT: poor dentation Respiratory exam: PRESENT: clear to auscultation goran, symmetrical, unlabored. ABSENT: rales, rhonchi, wheezes Cardiovascular exam: PRESENT: RRR, +S1, +S2. ABSENT: diastolic murmur, rubs, systolic murmur Pulses: PRESENT: normal dorsalis pedis pul Vascular exam: PRESENT: normal capillary refill GI/Abdominal exam: PRESENT: normal bowel sounds, soft. ABSENT: distended, guarding, mass, organolmegaly, rebound, tenderness Rectal exam: PRESENT: deferred Extremities exam: PRESENT: full ROM. ABSENT: calf tenderness, clubbing, pedal e obdulia Musculoskeletal exam: PRESENT: ambulatory Neurological exam: PRESENT: alert, awake, oriented to person, oriented to place, oriented to time, oriented to situation, CN II-XII grossly intact. ABSENT: motor sensory deficit Psychiatric exam: PRESENT: anxious, unusual affect. ABSENT: homicidal ideation, suicidal ideation Skin exam: PRESENT: dry, intact, warm. ABSENT: cyanosis, rash Results Laboratory Results: WBC 6.3 10^3/uL (4.0-10.5) 12/13/19 18:50 RBC 4.28 10^6/uL (3.72-5.28) 12/13/19 18:50 Hgb 13.7 g/dL (12.0-15.5) 12/13/19 18:50 Hct 40.1 % (36.0-47.0) 12/13/19 18:50 MCV 94 fl (80-97) 12/13/19 18:50 MCH 32.0 pg (27.0-33.4) 12/13/19 18:50 MCHC 34.2 g/dL (32.0-36.0) 12/13/19 18:50 RDW 12.9 % (11.5-14.0) 12/13/19 18:50 Plt Count 267 10^3/uL (150-450) 12/13/19 18:50 Lymph % (Auto) 18.4 % (13-45) 12/13/19 18:50 [place] % (Auto) 6.9 % (3-13) 12/13/19 18:50 Eos % (Auto) 1.5 % (0-6) 12/13/19 18:50 Baso % (Auto) 0.6 % (0-2) 12/13/19 18:50 Absolute Neuts (auto) 4.6 10^3/uL (1.7-8.2) 12/13/19 18:50 Absolute Lymphs (auto) 1.2 10^3/uL (0.5-4.7) 12/13/19 18:50 Absolute Monos (auto) 0.4 10^3/uL (0.1-1.4) 12/13/19 18:50 Absolute Eos (auto) 0.1 10^3/uL (0.0-0.6) 12/13/19 18:50 Absolute Basos (auto) 0.0 10^3/uL (0.0-0.2) 12/13/19 18:50 Seg Neutrophils % 72.6 % (42-78) 12/13/19 18:50 ESR 8 mm/hr (0-30) 12/14/19 11:56 Sodium 140.1 mmol/L (137-145) 12/13/19 18:50 Potassium 3.9 mmol/L (3.6-5.0) 12/13/19 18:50 Chloride 103 mmol/L (98-107) 12/13/19 18:50 Carbon Dioxide 32 mmol/L (22-30) H 12/13/19 18:50 Anion Gap 5 (5-19) 12/13/19 18:50 BUN 12 mg/dL (7-20) 12/13/19 18:50 Creatinine 0.75 mg/dL (0.52-1.25) 12/13/19 18:50 Est GFR ( Amer) > 60 (>60) 12/13/19 18:50 Est GFR (MDRD) Non-Af > 60 (>60) 12/13/19 18:50 Glucose 61 mg/dL (75-110) L 12/13/19 18:50 POC Glucose 87 mg/dL (70-110) 12/14/19 06:46 Calcium 10.0 mg/dL (8.4-10.2) 12/13/19 18:50 Total Bilirubin 0.7 mg/dL (0.2-1.3) 12/15/19 04:55 Direct Bilirubin 0.5 mg/dL (0.0-0.4) H 12/15/19 04:55 Neonat Total Bilirubin Not Reportable 12/15/19 04:55 Neonat Direct Bilirubin Not Reportable 12/15/19 04:55 Neonat Indirect Bili Not Reportable 12/15/19 04:55 AST 22 U/L (14-36) 12/15/19 04:55 ALT 14 U/L (<35) 12/15/19 04:55 Alkaline Phosphatase 54 U/L (38-126) 12/15/19 04:55 CK-MB (CK-2) 1.07 ng/mL (<4.55) 12/14/19 11:56 Troponin I < 0.012 ng/mL 12/14/19 11:56 Total Protein 6.1 g/dL (6.3-8.2) L 12/15/19 04:55 Albumin 3.3 g/dL (3.5-5.0) L 12/15/19 04:55 Triglycerides 130 mg/dL (<150) 12/15/19 04:55 Cholesterol 145.10 mg/dL (0-200) 12/15/19 04:55 LDL Cholesterol Direct 69 mg/dL (<100) 12/15/19 04:55 VLDL Cholesterol 26.0 mg/dL (10-31) 12/15/19 04:55 HDL Cholesterol 65 mg/dL (>40) 12/15/19 04:55 Lipase 216.4 U/L (23-300) 12/13/19 18:50 TSH 19.60 uIU/mL (0.47-4.68) H 12/13/19 18:50 Urine Color STRAW 12/13/19 21:17 Urine Appearance CLEAR 12/13/19 21:17 Urine pH 6.0 (5.0-9.0) 12/13/19 21:17 Ur Specific [place] 1.009 12/13/19 21:17 Urine Protein NEGATIVE mg/dL (NEGATIVE) 12/13/19 21:17 Urine Glucose (UA) NEGATIVE mg/dL (NEGATIVE) 12/13/19 21:17 Urine Ketones NEGATIVE mg/dL (NEGATIVE) 12/13/19 21:17 Urine Blood MODERATE (NEGATIVE) H 12/13/19 21:17 Urine Nitrite (Reflex) NEGATIVE (NEGATIVE) 12/13/19 21:17 Urine Bilirubin NEGATIVE (NEGATIVE) 12/13/19 21:17 Urine Urobilinogen NEGATIVE mg/dL (<2.0) 12/13/19 21:17 Leukocyte Esterase Rfl NEGATIVE (NEGATIVE) 12/13/19 21:17 Urine RBC (Auto) 2 /HPF 12/13/19 21:17 Urine WBC (Reflex) 1 /HPF 12/13/19 21:17 Squamous Epi Cells Auto 3 /HPF 12/13/19 21:17 Urine Mucus (Auto) RARE /LPF 12/13/19 21:17 Urine Ascorbic Acid NEGATIVE (NEGATIVE) 12/13/19 21:17 12/13/19 12/13/19 12/14/19 18:50 23:59 11:56 CK-MB (CK-2) 1.07 Troponin I < 0.012 < 0.012 < 0.012 Impressions: Chest X-Ray 12/13/19 18:42 IMPRESSION: NO ACUTE FINDINGS. Abdomen Ultrasound 12/13/19 20:12 IMPRESSION: Unremarkable exam. Abdomen/Pelvis CT 12/13/19 22:18 IMPRESSION: Large amount of stool in the colon. Negative for urinary tract calculus or hydronephrosis TECHNICAL DOCUMENTATION: Quality ID # [id number]: Final reports with documentation of one or more dose reduction techniques (e.g., Automated exposure control, adjustment of the mA and/or kV according to patient size, use of iterative reconstruction technique) copyright 2011 [email or web address]- All Rights Reserved KUB X-Ray 12/14/19 00:00 IMPRESSION: NO RADIOGRAPHIC EVIDENCE FOR ACUTE ABDOMINAL DISEASE. No constipation. Upper GI/Barium Swallow X-Ray 12/15/19 00:00 IMPRESSION: NORMAL DOUBLE CONTRAST BARIUM SWALLOW / UPPER GI SERIES. Plan Plan of Treatment: Patient was discharged home in stable condition. She was instructed to follow-up with her primary care provider within 1 week. She was advised to take her medication as prescribed. Eat a heart healthy diet. Do NOT smoke. Return to emergency department as needed for concerning symptoms. Time Spent: Less than 30 Minutes Stroke Is this a Stroke Patient?: No Acute Heart Failure - Is this a Heart Failure Patient?: No
== END 2019-12-16 18:40 | disposition home or self-care (01) ==
LOC: ER 18:27 → INTOOBSV 12-14 03:26 → EH 12-14 03:26 → 3N 12-14 06:15 → 5 12-14 22:13
PROVIDERS: ADMIT Hospitalist; ATTEND Hospitalist
DX: R07.89 Other chest pain (principal); R10.13 Epigastric pain; K59.01 Slow transit constipation; E89.0 Postprocedural hypothyroidism; J44.9 Chronic obstructive pulmonary disease, unspecified; I27.20 Pulmonary hypertension, unspecified; F41.1 Generalized anxiety disorder; E66.3 Overweight; Z79.899 Other long term (current) drug therapy; I45.10 Unspecified right bundle-branch block; F17.290 Nicotine dependence, other tobacco product, uncomplicated; R31.9 Hematuria, unspecified; R00.1 Bradycardia, unspecified; Z82.49 Family history of ischemic heart disease and other diseases of the circulatory system; Z91.14 Patient's other noncompliance with medication regimen; Z79.82 Long term (current) use of aspirin
CPT/HCPCS: 93005; 96376; 99285; 96374; 96375; 36415 ×3; 82553; 82962 ×2; 83690; 84443; 85025; 85652; 80076; 80053; 81001; 84484 ×2; 80061; 93306; 93017; 71046; 74018; 74246; 76705; 78452; 74176; 93010; 99406; G0378 ×4; A9500; J2785; J3490 ×8; J1644 ×3; J3010; J1885 ×2; J2060 ×3; J2405; J7030 ×3; Q9969

== ENCOUNTER 2019-12-19 11:27 | Emergency (ER) | payer OTHER ==
--- NOTE | 2019-12-19 12:10 | ER Document Report ---
ED Medical Screen (RME) - General Stated Complaint: UPPER ABDOMINAL PAIN/COUGHING Time Seen by Provider: 12/19/19 11:58 Primary Care Provider: SUNNY RAMIRES DO [Primary Care Provider] - Follow up as needed Mode of Arrival: Ambulatory Information source: Patient Notes: Meant with epigastric pain and chest pain. Patient reports pain has been ongoing since Sunday. Patient reports she was seen in this emergency department on Sunday for the symptoms and was admitted for a cardiac work-up. Patient reports this work-up was negative. She reports she continues to have pain and was told to follow up with her primary care doctor for pain medication. Patient reports PCP unable to see her until December 25. Patient requesting pain medication at this time. Patient refused EKG at pivot desk. I explained to the patient that because she has continued epigastric pain and chest pain I will be placing orders for a cardiac work-up and that it would not be prudent for me to give the patient a prescription for pain medication without doing an appropriate work-up. Heart sounds S1-S2 present, normal rate, normal rhythm. Lung sounds clear and equal bilaterally. I have greeted and performed a rapid initial assessment of this patient. A comprehensive ED assessment and evaluation of the patient, analysis of test results and completion of the medical decision making process will be conducted by additional ED providers. I have specifically instructed the patient or family members with the patient to immediately return to any nursing staff should anything change in the patient's condition or with their chief complaint. TRAVEL OUTSIDE OF THE [place] IN LAST 30 DAYS: No - Related Data Allergies/Adverse Reactions: Penicillins Allergy (Verified 12/13/19 18:41) Past Medical History Pulmonary Medical History: Reports: Hx COPD Endocrine Medical History: Reports: Hx Hyperthyroidism - Initially with radioactive iodine therapy leading to hypothyroidism, Hx Hypothyroidism Renal/ Medical History: Denies: Hx Peritoneal Dialysis Past Surgical History: Reports: Hx Section, Hx Thyroid Surgery Physical Exam - Vital signs Vitals: Temp Pulse Resp BP Pulse Ox 97.8 F 56 L 18 170/93 H 100 12/19/19 11:34 12/19/19 11:34 12/19/19 11:34 12/19/19 11:34 12/19/19 11:34 Course - Vital Signs Vital signs: Temp Pulse Resp BP Pulse Ox 97.8 F 56 L 18 170/93 H 100 12/19/19 11:34 12/19/19 11:34 12/19/19 11:34 12/19/19 11:34 12/19/19 11:34 Doctor's Discharge - Discharge Referrals: SUNNY RAMIRES DO [Primary Care Provider] - Follow up as needed
[2019-12-19] MEDS ORDERED: LIDOCAINE 2% VISCOUS SOLN 15 ML UDCUP PO ONE (12:44)
[2019-12-19] MEDS ORDERED: METOCLOPRAMIDE HCL ORAL SOLN 10 MG/10 ML UDCUP PO ONE (12:44)
[2019-12-19] MEDS ORDERED: MAG HYDROX/AL HYDROX/SIMETH SUSP 30 ML UDCUP PO ONE (12:44)
--- NOTE | 2019-12-19 12:54 | ER Document Report ---
ED GI/ - General Chief Complaint: Epigastric Pain Stated Complaint: UPPER ABDOMINAL PAIN/COUGHING Time Seen by Provider: 12/19/19 11:58 Primary Care Provider: SUNNY RAMIRES DO [Primary Care Provider] - Follow up as needed Mode of Arrival: Ambulatory Notes: CHIEF COMPLAINT: Continuing epigastric abdominal pain HPI: 54-year-old female presenting to the emergency department complaining of continued epigastric abdominal pain. Patient states she was admitted to the hospital 3 to 4 days ago for upper abdominal pain, states she had a cardiac work-up including a stress test that were negative. Continues to have pain. States she cannot see her PCP until December 25 and has no pain medications. States she is taking the medication for acid reflux without resolution of her pain. No fever. ROS: See HPI - all other systems were reviewed and are otherwise negative Constitutional: no fever Eyes: no drainage, no blurred vision ENT: no runny nose, no sore throat Cardiovascular: no chest pain Resp: no SOB, no cough GI: no vomiting, no diarrhea, positive abdominal pain : no dysuria Integumentary: no rash Allergy: no hives Musculoskeletal: no extremity pain or swelling Neurological: no numbness/tingling, no weakness MEDICATIONS: I agree with the patient medications as charted by the RN. ALLERGIES: I agree with the allergies as charted by the RN. PAST MEDICAL HISTORY/PAST SURGICAL HISTORY: Reviewed and agree as charted by RN. SOCIAL HISTORY: Reviewed and agree as charted by RN. FAMILY HISTORY: No significant familial comorbid conditions directly related to patient complaint EXAM: Reviewed vital signs as charted by RN. CONSTITUTIONAL: Alert and oriented and responds appropriately to questions. Well-appearing; well-nourished, mild distress secondary to discomfort HEAD: Normocephalic; atraumatic EYES: PERRL; Conjunctivae clear, sclerae non-icteric ENT: normal nose; no rhinorrhea; moist mucous membranes; pharynx without lesions noted, no uvula edema or deviation, no tonsillar hypertrophy, phonation normal NECK: Supple without meningismus; non-tender; no cervical lymphadenopathy, no masses CARD: RRR; no murmurs, no clicks, no rubs, no gallops; symmetric distal pulses RESP: Normal chest excursion without splinting or tachypnea; breath sounds clear and equal bilaterally; no wheezes, no rhonchi, no rales, pulse oximetry 100% on room air not hypoxic ABD/GI: Normal bowel sounds; non-distended; soft, mild to moderate tenderness in the epigastric region on palpation, no rebound, no guarding; no palpable organomegaly or masses. BACK: The back appears normal and is non-tender to palpation, there is no CVA tenderness EXT: Normal ROM in all joints; non-tender to palpation; no cyanosis, no effusions, no edema SKIN: Normal color for age and race; warm; dry; good turgor; no acute lesions noted NEURO: Moves all extremities equally; Motor and sensory function intact PSYCH: The patient's mood and manner are appropriate. Grooming and personal hygiene are appropriate. MDM: 54-year-old female presenting for continued epigastric pain. Had a negative stress test while in the hospital also negative CT imaging of the abdomen and ultrasound imaging of the abdomen. Had negative lab work. Likely a gastric ulcer or duodenal ulcer. Given the patient's age we will recheck lab work today. Will obtain KUB to evaluate for free air or constipation. Will give patient GI cocktail initially. I have low suspicion for ACS TRAVEL OUTSIDE OF THE [place] IN LAST 30 DAYS: No - Related Data Allergies/Adverse Reactions: Penicillins Allergy (Verified 12/13/19 18:41) Past Medical History - General Information source: Patient - Social History Smoking Status: Unknown if Ever Smoked Family History: Reviewed & Not Pertinent, Other - Mother committed suicide Patient has suicidal ideation: No Patient has homicidal ideation: No Pulmonary Medical History: Reports: Hx COPD Endocrine Medical History: Reports: Hx Hyperthyroidism - Initially with radioactive iodine therapy leading to hypothyroidism, Hx Hypothyroidism Renal/ Medical History: Denies: Hx Peritoneal Dialysis Past Surgical History: Reports: Hx Section, Hx Thyroid Surgery Physical Exam - Vital signs Vitals: Temp Pulse Resp BP Pulse Ox 97.8 F 56 L 18 170/93 H 100 12/19/19 11:34 12/19/19 11:34 12/19/19 11:34 12/19/19 11:34 12/19/19 11:34 Course - Re-evaluation Re-evalutation: 12/19/19 13:52 Lab work and imaging studies do not show acute emergent abnormality, low suspicion for ACS. Given recent work-up do not feel further imaging necessary at this time. Will place patient on a very short course of pain medication as well as Carafate, aware that she must follow-up with gastroenterology and PCP for further evaluation and treatment - Vital Signs Vital signs: Temp Pulse Resp BP Pulse Ox 97.8 F 56 L 18 170/93 H 100 12/19/19 11:34 12/19/19 11:34 12/19/19 11:34 12/19/19 11:34 12/19/19 12:49 - Laboratory Result Diagrams: 12/19/19 12:49 12/19/19 12:49 Laboratory results interpreted by me: 12/19/19 12/19/19 12:49 12:49 Seg Neutrophils % 80.0 H Carbon Dioxide 32 H Calcium 10.4 H AST 50 H ALT 47 H Total Protein 8.6 H Albumin 5.1 H Discharge - Discharge Clinical Impression: Abdominal pain, epigastric Condition: Stable Disposition: HOME, SELF-CARE Additional Instructions: Medications as prescribed no driving if taking narcotics for pain. You must follow-up with gastroenterology or your primary care provider for further pain management as well as further evaluation of your abdominal pain. Your lab work did not show any acute abnormalities today Prescriptions: Sucralfate [Carafate 1 gm Tablet] 1 gm PO ACHS #120 tablet Hydrocodone/Acetaminophen [[place] 5-325 mg Tablet] 1 tab PO Q4 PRN #15 tablet PRN Reason: Referrals: SUNNY RAMIRES DO [Primary Care Provider] - Follow up as needed ALLI MCKEON MD [ACTIVE STAFF] - Follow up as needed
--- NOTE | 2019-12-19 12:57 | RADIOLOGY REPORT (SQ) ---
EXAM DESCRIPTION: CHEST 2 VIEWS COMPLETED DATE/TIME: 12/19/2019 12:43 pm REASON FOR STUDY: chest pain COMPARISON: 12/13/19. EXAM PARAMETERS: NUMBER OF VIEWS: two views TECHNIQUE: Digital Frontal and Lateral radiographic views of the chest acquired. RADIATION DOSE: NA LIMITATIONS: none FINDINGS: LUNGS AND PLEURA: No opacities, masses or pneumothorax. No pleural effusion. MEDIASTINUM AND HILAR STRUCTURES: No masses or contour abnormalities. HEART AND VASCULAR STRUCTURES: Heart normal size. No evidence for failure. BONES: No acute findings. HARDWARE: None in the chest. OTHER: No other significant finding. IMPRESSION: NO ACUTE RADIOGRAPHIC FINDING IN THE CHEST. TECHNICAL DOCUMENTATION: JOB ID: [id number] 2010 [employer]- All Rights Reserved Reading location - IP/workstation name: [email or web address]
[2019-12-19 13:04] LABS: ABSOLUTE EOSINOPHILS # (AUTO) 0.1 10^3/uL (0.0-0.6); ABSOLUTE LYMPHOCYTES (AUTO) 0.8 10^3/uL (0.5-4.7); ABSOLUTE MONOCYTES (AUTO) 0.2 10^3/uL (0.1-1.4); ABSOLUTE NEUT (AUTO) 4.5 10^3/uL (1.7-8.2); BASOPHILS % (AUTO) 0.6 % (0-2); HEMATOCRIT 41.3 % (36.0-47.0); HEMOGLOBIN 14.5 g/dL (12.0-15.5); LYMPHOCYTES % (AUTO) 14.1 % (13-45); MEAN CORPUSCULAR HEMOGLOBIN 32.6 pg (27.0-33.4); MEAN CORPUSCULAR HGB CONC 35.2 g/dL (32.0-36.0); MEAN CORPUSCULAR VOLUME 93 fl (80-97); MONOCYTES % (AUTO) 4.3 % (3-13); PLATELET COUNT 251 10^3/uL (150-450); RED BLOOD COUNT 4.45 10^6/uL (3.72-5.28); RED CELL DISTRIBUTION WIDTH 12.9 % (11.5-14.0); TOTAL CELLS COUNTED % (AUTO) 100 %; WHITE BLOOD COUNT 5.6 10^3/uL (4.0-10.5)
[2019-12-19] MEDS ORDERED: OXYCODONE-ACETAMINOPHEN 5-325 MG TABLET PO ONE (13:17)
[2019-12-19 13:21] LABS: ALBUMIN 5.1 g/dL (3.5-5.0); ALKALINE PHOSPHATASE 77 U/L (38-126); ANION GAP 9 (5-19); ASPARTATE AMINO TRANSFERASE 50 U/L (14-36); BILIRUBIN,TOTAL 0.7 mg/dL (0.2-1.3); BLOOD UREA NITROGEN 9 mg/dL (7-20); CALCIUM 10.4 mg/dL (8.4-10.2); CARBON DIOXIDE 32 mmol/L (22-30); CHLORIDE 102 mmol/L (98-107); GLUCOSE 84 mg/dL (75-110); TOTAL PROTEIN 8.6 g/dL (6.3-8.2)
--- NOTE | 2019-12-19 13:31 | RADIOLOGY REPORT (SQ) ---
EXAM DESCRIPTION: KUB/ABDOMEN (SINGLE VIEW) COMPLETED DATE/TIME: 12/19/2019 1:22 pm REASON FOR STUDY: epigastric pain COMPARISON: 12/13/2020 NUMBER OF VIEWS: One view. TECHNIQUE: Supine radiographic image of the abdomen acquired. LIMITATIONS: None. FINDINGS: BOWEL GAS PATTERN: Normal bowel gas pattern. No dilated loops. CALCIFICATIONS: No suspicious calcifications. SOFT TISSUES: No gross mass or suggestion of organomegaly. High-density material is noted in the rec erik which may be residual oral contrast. HARDWARE: None in the abdomen. BONES: No acute fracture. No worrisome bone lesions. OTHER: No other significant finding. IMPRESSION: NO RADIOGRAPHIC EVIDENCE FOR ACUTE ABDOMINAL DISEASE. TECHNICAL DOCUMENTATION: JOB ID: [id number] 2010 [employer]- All Rights Reserved Reading location - IP/workstation name: [email or web address]
[2019-12-19] MEDS ORDERED: FAMOTIDINE INJ/PF 20 MG/2 ML SDV IV ONE (14:01)
[2019-12-19 14:02] VITALS: BP 152/85
--- NOTE | 2019-12-19 18:21 | EKG REPORT ---
SEVERITY:- ABNORMAL ECG - SINUS RHYTHM PROBABLE LEFT ATRIAL ABNORMALITY RIGHT BUNDLE BRANCH BLOCK : Confirmed by: Gloria Briggs 19-Dec-2019 18:20:43
== END 2019-12-19 14:24 | disposition home or self-care (01) ==
LOC: ER 11:27
DX: R10.13 Epigastric pain (principal); R10.10 Upper abdominal pain, unspecified; R05 Cough; Z88.0 Allergy status to penicillin; J44.9 Chronic obstructive pulmonary disease, unspecified
CPT/HCPCS: 93005; 99284; 96374; 36415; 85025; 80053; 84484; 71046; 74018; 93010; J3490; S0028

== ENCOUNTER → 2020-04-27 | Outpatient (CLI) | payer OTHER ==
--- NOTE | 2020-04-27 16:08 | RADIOLOGY REPORT (SQ) ---
EXAM DESCRIPTION: BARIUM SWALLOW ESOPHAGUS IMAGES COMPLETED DATE/TIME: 04/27/2020 10:24 am REASON FOR STUDY: DIAPHRAGMATIC HERNIA WITHOUT OBSTRUCTION OR GANGRENE K44.9 DIAPHRAGMATIC HERNIA W ITHOUT OBSTRUCTION OR GANGRENE COMPARISON: Barium swallow 12/15/2019. TECHNIQUE: Under fluoroscopic guidance, patient ingested effervescent granules followed by thick and thin barium. Fluoroscopic spot images and routine radiographic images acquired and stored on PACS. 12 MM BARIUM TABLET GIVEN: Barium tablet passed through the esophagus and into the stomach without de lay. LIMITATIONS: None. FLUOROSCOPY TIME: FLUORO TIME: 1.8 minutes 4 images saved to PACS. FINDINGS: NEUROMUSCULAR COORDINATION OF SWALLOW: Normal. No aspiration. ESOPHAGEAL MOTILITY: Normal peristalsis. No esophageal spasm. ESOPHAGEAL MUCOSA: Normal mucosa without masses or ulceration. GASTRO-ESOPHAGEAL JUNCTION: No hiatal hernia or reflux. NON-GI TRACT STRUCTURES: No significant finding. OTHER: No other significant finding. IMPRESSION: NORMAL DOUBLE CONTRAST BARIUM SWALLOW. RECOMMENDATION: None COMMENT: None Quality ID [id number]: Final reports for procedures using fluoroscopy that document radiation exposure cecil sarah, or exposure time and number of fluorographic images (if radiation exposure indices are not avail able) TECHNICAL DOCUMENTATION: JOB ID: [id number] 2010 [employer]- All Rights Reserved Reading location - IP/workstation name: [email or web address] [id number]
== END ==
LOC: RAD 10:04
PROVIDERS: ATTEND Family Medicine
DX: K44.9 Diaphragmatic hernia without obstruction or gangrene (principal); R10.11 Right upper quadrant pain
CPT/HCPCS: 74220

== ENCOUNTER → 2020-04-29 | Outpatient (CLI) | payer OTHER ==
--- NOTE | 2020-04-29 15:39 | RADIOLOGY REPORT (SQ) ---
EXAM DESCRIPTION: NM HIDA SCAN WITH CCK IMAGES COMPLETED DATE/TIME: 04/29/2020 3:03 pm REASON FOR STUDY: R10.11 RIGHT UPPER QUADRANT PAIN R10.11 RIGHT UPPER QUADRANT PAIN COMPARISON: None. RADIONUCLIDE AND DOSE: DOSAGE RADIONUCLIDE: 5.4 millicuries Tc99m Mebrofenin. DOSAGE CCK: 1.4 micrograms. DOSAGE MORPHINE: Not required. The route of agent administration: Intravenous TECHNIQUE: Serial imaging right upper quadrant up to 60 minutes following injection of radionuclide. CCK injected after gallbladder visualized. LIMITATIONS: None. FINDINGS: LIVER: Normal visualization without areas of photopenia. INTRAHEPATIC BILE DUCTS: Normal size and no delay in visualization. COMMON BILE DUCT: Normal without dilatation. GALLBLADDER: Normal visualization. Calculated ejection fraction of 49%. Normal range is greater th an 35%. PHYSICAL RESPONSE: Patients presenting complaint was reproduced. OTHER: No other significant finding. IMPRESSION: NORMAL STUDY WITHOUT CYSTIC OR COMMON DUCT OBSTRUCTION. NORMAL GALLBLADDER EJECTION FRA CTION. NO EVIDENCE FOR BILIARY DYSKINESIS. TECHNICAL DOCUMENTATION: JOB ID: [id number] 2010 [employer]- All Rights Reserved Reading location - IP/workstation name: [email or web address]
== END ==
LOC: RAD 13:05
PROVIDERS: ATTEND Family Medicine
DX: R10.11 Right upper quadrant pain (principal)
CPT/HCPCS: 78227; J2805; A9537; Q9969

== ENCOUNTER 2020-05-03 08:19 | Day surgery (SDC) | payer OTHER ==
[2020-04-30 12:34] LABS: HEMATOCRIT 39.5 % (36.0-47.0); HEMOGLOBIN 13.8 g/dL (12.0-15.5); MEAN CORPUSCULAR HEMOGLOBIN 31.4 pg (27.0-33.4); MEAN CORPUSCULAR HGB CONC 34.9 g/dL (32.0-36.0); MEAN CORPUSCULAR VOLUME 90 fl (80-97); PLATELET COUNT 239 10^3/uL (150-450); RED BLOOD COUNT 4.38 10^6/uL (3.72-5.28); RED CELL DISTRIBUTION WIDTH 12.9 % (11.5-14.0)
--- NOTE | 2020-05-01 10:26 | EKG REPORT ---
SEVERITY:- ABNORMAL ECG - SINUS RHYTHM RIGHT BUNDLE BRANCH BLOCK PROBABLE ANTEROSEPTAL INFARCT, AGE INDETERM : Confirmed by: Gloria Briggs 01-May-2020 10:25:34
[~2020-05-03 08:19] MED LIST: PROPOFOL INJ 200 MG/20 ML VIAL IV ONE
[2020-05-03] MEDS ORDERED: PROPOFOL INJ 200 MG/20 ML VIAL IV ONE (10:59)
--- NOTE | 2020-05-03 11:33 | Operative Report ---
Operative Report DATE OF SURGERY: 05/03/20 Operative Report: The risk, benefits and alternatives of the procedure including the risk of bleeding, perforation requiring surgery have been explained to the patient in detail and informed consent has been obtained. Patient is placed in a left, lateral decubital position. Timeout was called. Propofol medication is administered. Rectal examination is done which did not reveal any masses, tears or fissures. An Olympus videoscope was introduced into the patient's rectum. Scope was then carefully advanced all the way to the cecum. The cecum was identified by the usual anatomical landmarks including the ileocecal valve as well as the appendiceal office. Photodocumentation is obtained. Scope was then sequentially pulled back via the various segments of the colon including the ascending colon, hepatic flexure, transverse colon, splenic flexure, descending colon finding to the rectosigmoid portions of the colon. Retroflexion maneuver is performed. The risks benefits and alternatives of the procedure explained to the patient in detail and informed consent is obtained.A GIF Olympus video scope was inserted into the patient's mouth and hypopharynx, the esophagus is identified intubated and insufflated, the scope was then advanced through the esophagus stomach and duodenum, retroflexion maneuver is done, the esophagus stomach and first and second portions of the duodenum examined PREOPERATIVE DIAGNOSIS: Colorectal cancer screening ,epigastric pain POSTOPERATIVE DIAGNOSIS: Sigmoid polyp removed via snare polypectomy and retrieved. Diverticulosis without any evidence of diverticulitis. Internal hemorrhoids. Right colon inflammation status post biopsy. Gastritis status post biopsy OPERATION: Colonoscopy with snare polypectomy. Colonoscopy with biopsy. EGD with biopsy SURGEON: ALLI MCKEON ANESTHESIA: LMAC TISSUE REMOVED OR ALTERED: As noted above. COMPLICATIONS: None. ESTIMATED BLOOD LOSS: None. INTRAOPERATIVE FINDINGS: As noted above. PROCEDURE: Patient tolerated the procedure well. No immediate postprocedure complications are noted. Patient is discharged in good condition. Discharge date 05/03/2020. Discharge diet: Regular. Discharge activity: Regular. 2 to 3-week follow-up to discuss findings. Patient is instructed to call the office or proceed to the emergency room should there be any further problems or questions. Wait on the pathology.
[2020-05-03 12:00] VITALS: BP 132/72
== END 2020-05-03 12:55 | disposition home or self-care (01) ==
LOC: END 08:19
PROVIDERS: ATTEND Internal Medicine Gastroenterology
DX: Z12.11 Encounter for screening for malignant neoplasm of colon (principal); D12.5 Benign neoplasm of sigmoid colon; K64.8 Other hemorrhoids; K52.9 Noninfective gastroenteritis and colitis, unspecified; K57.30 Diverticulosis of large intestine without perforation or abscess without bleeding; K29.50 Unspecified chronic gastritis without bleeding; K44.9 Diaphragmatic hernia without obstruction or gangrene; E03.9 Hypothyroidism, unspecified; E05.00 Thyrotoxicosis with diffuse goiter without thyrotoxic crisis or storm; Z79.899 Other long term (current) drug therapy; Z87.891 Personal history of nicotine dependence; Z88.0 Allergy status to penicillin; Z88.1 Allergy status to other antibiotic agents; Z03.818 Encounter for observation for suspected exposure to other biological agents ruled out
CPT/HCPCS: 43239; 45380; 45385; 93005; 36415; 85027; 87635; 88305 ×2; 93010; 00813; J2704; C9803; 813